=== PATIENT | male | born 1950 | race Two or more races ===

== ENCOUNTER 2021-04-29 18:10 | Inpatient (IN) | payer OTHER ==
[~2021-04-29] VITALS: Ht 165.1 cm; Wt 108.6 kg
[2021-04-29] MEDS ORDERED: traMADol HCL 50 MG TAB PO PRN (19:00)
[2021-04-29] MEDS ORDERED: PANTOPRAZOLE 40 MG/10 ML VIAL INJ IV ONE (19:00)
[2021-04-29] MEDS ORDERED: NITROGLYCERIN 0.4 MG SL TAB SL PRN (19:00)
[2021-04-29] MEDS ORDERED: MORPHINE SULF INJ 2 MG/ML SYRINGE 1ML IV PRN (19:00)
[2021-04-29] MEDS ORDERED: DEXTROSE (50%) 50ML SYRG IV PRN (19:00)
[2021-04-29] MEDS ORDERED: PROMETHAZINE HCL 25 MG/ML 1ML IV PRN (19:00)
[2021-04-29] MEDS ORDERED: IBUP800T26 PO (20:49)
[2021-04-29] MEDS ORDERED: METF-370 PO (20:49)
[2021-04-29] MEDS: ACCU-CHEK COMFORT CURVE STRIP VI SCH (21:51)
[2021-04-29] MEDS: InsuLIN REG 1unit/0.01ml Soln (100units/ml) SC SCH (21:53)
[2021-04-29] MEDS: SODIUM CHLORIDE 0.9% 1,000 ML IV SCH (21:54)
[2021-04-29 22:00] VITALS: BP 117/66
[2021-04-30 00:43] LABS: Hematocrit 29.2 % (41.0-53.0)
[2021-04-30 05:00] VITALS: BP 115/68
[2021-04-30 05:44] LABS: Hematocrit 27.5 % (41.0-53.0)
[2021-04-30] MEDS: InsuLIN REG 1unit/0.01ml Soln (100units/ml) SC SCH ×4 (05:58→22:04)
[2021-04-30] MEDS: ACCU-CHEK COMFORT CURVE STRIP VI SCH ×4 (05:58→21:55)
[2021-04-30] MEDS: SODIUM CHLORIDE 0.9% 1,000 ML IV SCH ×2 (06:30→16:30)
[2021-04-30 08:39] VITALS: BP 141/83
[2021-04-30] MEDS: PANTOPRAZOLE 40 MG/10 ML VIAL INJ IV SCH ×2 (09:50→21:55)
[2021-04-30] MEDS ORDERED: GOLYTELY 4L KIT PO ONE (11:45)
[2021-04-30 11:59] LABS: Hemoglobin 9.7 g/dL (13.5-17.5)
[2021-04-30 12:49] VITALS: BP 141/75
[2021-04-30 13:42] LABS: INR 0.98 (0.9-1.15)
[2021-04-30 16:28] VITALS: BP 140/70
[2021-04-30 22:00] VITALS: BP 139/80
[2021-05-01] MEDS: SODIUM CHLORIDE 0.9% 1,000 ML IV SCH ×3 (02:30→22:30)
[2021-05-01] MEDS: ACETAMINOPHEN 500 MG TAB PO PRN ×2 (04:17→23:36)
[2021-05-01 05:00] VITALS: BP 122/74
[2021-05-01] MEDS: ACCU-CHEK COMFORT CURVE STRIP VI SCH ×4 (06:24→22:00)
[2021-05-01] MEDS: InsuLIN REG 1unit/0.01ml Soln (100units/ml) SC SCH ×4 (06:24→22:00)
[2021-05-01 06:52] LABS: Basophils # (auto) 0 10 ^3/uL (0-0.2); Basophils % (auto) 0.4 % (0.0-2.0); Eosinophils # (auto) 0.1 10 ^3/uL (0-0.8); Eosinophils % (auto) 0.7 % (0.0-7.0); Hematocrit 26.4 % (41.0-53.0); Hemoglobin 9.2 g/dL (13.5-17.5); Lymphocytes % (auto) 12.5 % (10.0-50.0); Mean Corpuscular Hemoglobin 32.3 pg (28.0-32.0); Mean Corpuscular Hgb Conc. 34.7 g/dL (32.0-36.0); Mean Corpuscular Volume 93.2 fL (80.0-100.0); Monocytes # (auto) 0.6 10 ^3/uL (0-1.3); Monocytes % (auto) 8.2 % (0.0-12.0); Neutrophils % (auto) 78.2 % (37.0-80.0); Nucleated Red Blood Cells % 0.1 %; Platelet Count (auto) 205 10^3/uL (140-450); Red Blood Cells 2.84 10^6/uL (4.5-5.90); Red Cell Distribution Width 15.7 % (11.8-14.3); White Blood Cell 7.7 10^3/uL (4.4-10.8)
[2021-05-01 07:14] LABS: Potassium 3.4 mmol/L (3.5-5.1)
[2021-05-01 07:20] LABS: Albumin 2.7 g/dL (3.4-5.0); BUN/Creatinine Ratio 8.6; Bilirubin, Total 0.6 mg/dL (0.2-1.0); Total Protein 5.9 g/dL (6.4-8.2)
[2021-05-01 09:00] VITALS: BP 122/65
[2021-05-01] MEDS: PANTOPRAZOLE 40 MG/10 ML VIAL INJ IV SCH ×2 (09:07→23:06)
[2021-05-01] MEDS ORDERED: SODIUM CHLORIDE LOCK 10 ML ONE (09:15)
[2021-05-01] MEDS ORDERED: diphenhdrAMINE HCL 50 MG/1 ML VL ONE (09:16)
[2021-05-01] MEDS: fentaNYL CITRATE 100 MCG/2 ML VL ONE ×2 (10:24→10:29)
[2021-05-01] MEDS: MIDAZOLAM HCL 5 MG/ML-1ML VIAL ONE ×2 (10:24→10:29)
[2021-05-01 13:00] VITALS: BP 155/74
[2021-05-01 17:27] VITALS: BP 133/62
[2021-05-01 17:33] VITALS: BP 141/69
[2021-05-01 22:00] VITALS: BP 143/63
[2021-05-02 04:57] VITALS: BP 123/69
[2021-05-02] MEDS: ACCU-CHEK COMFORT CURVE STRIP VI SCH ×2 (05:46→11:26)
[2021-05-02] MEDS: InsuLIN REG 1unit/0.01ml Soln (100units/ml) SC SCH ×2 (06:54→11:26)
[2021-05-02] MEDS: SODIUM CHLORIDE 0.9% 1,000 ML IV SCH (08:11)
[2021-05-02] MEDS: PANTOPRAZOLE 40 MG/10 ML VIAL INJ IV SCH (08:59)
[2021-05-02 09:00] VITALS: BP 125/70
[2021-05-02 12:15] VITALS: BP 125/70
== END 2021-05-02 13:55 | disposition home or self-care (01) | DRG 378 ==
LOC: TELE-EAST 18:10
PROVIDERS: ADMIT Internal Medicine; ATTEND Family Medicine
PROC: 0DBN8ZZ Excision of Sigmoid Colon, Via Natural or Artificial Opening Endoscopic (ICD-10-PCS; 2021-05-01)
PROC: 0DBP8ZZ Excision of Rectum, Via Natural or Artificial Opening Endoscopic (ICD-10-PCS; principal; 2021-05-01 10:19)
DX: K62.5 Hemorrhage of anus and rectum (principal); D62 Acute posthemorrhagic anemia; K63.5 Polyp of colon; Z20.822 Contact with and (suspected) exposure to COVID-19; K62.1 Rectal polyp; D72.829 Elevated white blood cell count, unspecified; E66.01 Morbid (severe) obesity due to excess calories; E87.6 Hypokalemia; E11.9 Type 2 diabetes mellitus without complications; R00.1 Bradycardia, unspecified; Z68.39 Body mass index [BMI] 39.0-39.9, adult; Z79.899 Other long term (current) drug therapy
CPT/HCPCS: 36415; 71045; 80053; 82962; 83036; 85014; 85018; 85025; 85045; 85049; 85610; 86850; 86900; 86901; 87426; 93005; 93306; C9113; G0378; J1815; J2250

== ENCOUNTER → 2021-05-29 | Outpatient (CLI) | payer OTHER ==
[~2021-05-29] MED LIST: IBUP800T26 PO; METF-370 PO
[2021-05-29 09:18] LABS: Basophils # (auto) 0 10 ^3/uL (0-0.2); Basophils % (auto) 0.3 % (0.0-2.0); Eosinophils # (auto) 0 10 ^3/uL (0-0.8); Hemoglobin 10.3 g/dL (13.5-17.5); Lymphocytes # (auto) 1.7 10 ^3/uL (0.4-5.4); Nucleated Red Blood Cells % 0.1 %; White Blood Cell 8.4 10^3/uL (4.4-10.8)
[2021-05-29 09:21] LABS: Hematocrit 31.1 % (41.0-53.0); Lymphocytes % (auto) 20.2 % (10.0-50.0); Mean Corpuscular Hemoglobin 27.8 pg (28.0-32.0); Mean Corpuscular Hgb Conc. 33.1 g/dL (32.0-36.0); Mean Corpuscular Volume 84.1 fL (80.0-100.0); Monocytes # (auto) 0.5 10 ^3/uL (0-1.3); Monocytes % (auto) 6.2 % (0.0-12.0); Neutrophils # (auto) 6.2 10 ^3/uL (1.6-8.6); Neutrophils % (auto) 73.3 % (37.0-80.0); Red Cell Distribution Width 18.9 % (11.8-14.3)
[2021-05-29 09:23] LABS: Urine Bacteria NONE SEEN /hpf (None Seen); Urine Blood Negative /uL (Negative); Urine Mucus FEW (None Seen); Urine Specific Gravity 1.017 (1.001-1.035); Urine WBC 3 /hpf (0 - 3)
[2021-05-29 09:43] LABS: Potassium 3.8 mmol/L (3.5-5.1)
[2021-05-29 09:51] LABS: BUN/Creatinine Ratio 19.1; Bilirubin, Total 0.3 mg/dL (0.2-1.0); Calcium 9.2 mg/dL (8.5-10.1); Total Protein 8.5 g/dL (6.4-8.2); Uric Acid 5.9 mg/dL (3.5-7.2)
== END | disposition home or self-care (01) ==
LOC: LAB 08:26
PROVIDERS: ATTEND Student in an Organized Health Care Education/Training Program
DX: E11.9 Type 2 diabetes mellitus without complications (principal); I10 Essential (primary) hypertension; N40.0 Benign prostatic hyperplasia without lower urinary tract symptoms; M25.50 Pain in unspecified joint
CPT/HCPCS: 36415; 80053; 80061; 81001; 82043; 83036; 84153; 84154; 84443; 84550; 85025

== ENCOUNTER → 2021-12-06 | Outpatient (CLI) | payer OTHER ==
[2021-12-06 10:18] LABS: Potassium 4.4 mmol/L (3.5-5.1)
[2021-12-06 10:27] LABS: BUN/Creatinine Ratio 17.5; Calcium 9.1 mg/dL (8.5-10.1)
[2021-12-06 10:40] LABS: Basophils # (auto) 0 10 ^3/uL (0-0.2); Basophils % (auto) 0.5 % (0.0-2.0); Eosinophils # (auto) 0.1 10 ^3/uL (0-0.8); Eosinophils % (auto) 1.4 % (0.0-7.0); Hemoglobin 10.8 g/dL (13.5-17.5); Lymphocytes # (auto) 1.3 10 ^3/uL (0.4-5.4); Mean Corpuscular Hemoglobin 25.7 pg (28.0-32.0); Monocytes # (auto) 0.6 10 ^3/uL (0-1.3); Neutrophils % (auto) 68.3 % (37.0-80.0); Red Blood Cells 4.19 10^6/uL (4.5-5.90); Red Cell Distribution Width 18.1 % (11.8-14.3)
[2021-12-06 10:43] LABS: Hematocrit 33.7 % (41.0-53.0); Lymphocytes % (auto) 20.3 % (10.0-50.0); Mean Corpuscular Hgb Conc. 31.9 g/dL (32.0-36.0); Mean Corpuscular Volume 80.6 fL (80.0-100.0); Monocytes % (auto) 9.5 % (0.0-12.0); Neutrophils # (auto) 4.4 10 ^3/uL (1.6-8.6); Nucleated Red Blood Cells % 0.1 %; White Blood Cell 6.4 10^3/uL (4.4-10.8)
== END | disposition home or self-care (01) ==
LOC: LAB 07:23
PROVIDERS: ATTEND Student in an Organized Health Care Education/Training Program
DX: E11.9 Type 2 diabetes mellitus without complications (principal); I10 Essential (primary) hypertension
CPT/HCPCS: 36415; 80048; 80061; 82043; 83036; 85025

== ENCOUNTER 2022-09-04 08:45 | Outpatient (CLI) | payer OTHER ==
[~2022-09-04] VITALS: Ht 177.8 cm; Wt 106.6 kg
[2022-09-04] MEDS ORDERED: ADENOSINE 90 MG/30 ML INJ IV ONE (09:40)
[2022-09-04] MEDS ORDERED: ADENOSINE 90 MG in GIVE UN-DILUTED 0 ML IV ONE (09:45)
== END 2022-09-04 09:40 | disposition home or self-care (01) ==
LOC: Rad HDHVI 08:45
PROVIDERS: ATTEND Internal Medicine
DX: I49.9 Cardiac arrhythmia, unspecified (principal)
CPT/HCPCS: 93005; J0153

== ENCOUNTER → 2022-09-06 | Outpatient (CLI) | payer OTHER ==
[2022-09-06 08:35] LABS: Basophils # (auto) 0 10 ^3/uL (0-0.2); Basophils % (auto) 0.2 % (0.0-2.0); Eosinophils # (auto) 0 10 ^3/uL (0-0.8); Eosinophils % (auto) 0.3 % (0.0-7.0); Hematocrit 38.1 % (41.0-53.0); Hemoglobin 12.8 g/dL (13.5-17.5); Lymphocytes # (auto) 0.9 10 ^3/uL (0.4-5.4); Lymphocytes % (auto) 11.6 % (10.0-50.0); Mean Corpuscular Hemoglobin 30.1 pg (28.0-32.0); Mean Corpuscular Hgb Conc. 33.6 g/dL (32.0-36.0); Mean Corpuscular Volume 89.6 fL (80.0-100.0); Monocytes # (auto) 0.4 10 ^3/uL (0-1.3); Monocytes % (auto) 5.3 % (0.0-12.0); Neutrophils # (auto) 6.1 10 ^3/uL (1.6-8.6); Neutrophils % (auto) 82.6 % (37.0-80.0); Red Blood Cells 4.24 10^6/uL (4.5-5.90); Red Cell Distribution Width 17.1 % (11.8-14.3); White Blood Cell 7.4 10^3/uL (4.4-10.8)
[2022-09-06 08:53] LABS: Urine Bacteria NONE SEEN /hpf (None Seen); Urine Blood Negative /uL (Negative); Urine Hyaline Cast FEW /lpf (0 - 2); Urine Specific Gravity 1.018 (1.001-1.035); Urine WBC 2 /hpf (0 - 3)
[2022-09-06 09:08] LABS: Calcium 9.4 mg/dL (8.5-10.1)
[2022-09-06 09:11] LABS: BUN/Creatinine Ratio 17.8
== END | disposition home or self-care (01) ==
LOC: LAB 08:12
PROVIDERS: ATTEND Student in an Organized Health Care Education/Training Program
DX: I10 Essential (primary) hypertension (principal); E55.9 Vitamin D deficiency, unspecified; E11.9 Type 2 diabetes mellitus without complications; N40.0 Benign prostatic hyperplasia without lower urinary tract symptoms
CPT/HCPCS: 36415; 80048; 80061; 81001; 82043; 82306; 83036; 84153; 84154; 85025

== ENCOUNTER → 2022-09-06 | Outpatient (CLI) | payer OTHER | END | disposition home or self-care (01) | LOC: Rad HDHVI 10:56 | PROVIDERS: ATTEND Internal Medicine | DX: I08.1 Rheumatic disorders of both mitral and tricuspid valves (principal); E78.5 Hyperlipidemia, unspecified; R06.02 Shortness of breath | CPT/HCPCS: 93306 ==

== ENCOUNTER → 2022-10-02 | Outpatient (CLI) | payer OTHER, MEDICAID ==
[2022-10-02 10:20] VITALS: BP 140/79
[2022-10-02 11:20] VITALS: BP 124/74
[2022-10-02 11:42] LABS: Basophils # (auto) 0 10 ^3/uL (0-0.2); Basophils % (auto) 0.4 % (0.0-2.0); Eosinophils # (auto) 0.1 10 ^3/uL (0-0.8); Eosinophils % (auto) 0.8 % (0.0-7.0); Hemoglobin 13.2 g/dL (13.5-17.5); Lymphocytes # (auto) 0.8 10 ^3/uL (0.4-5.4); Lymphocytes % (auto) 10.7 % (10.0-50.0); Mean Corpuscular Hemoglobin 29.7 pg (28.0-32.0); Mean Corpuscular Hgb Conc. 32.9 g/dL (32.0-36.0); Mean Corpuscular Volume 90.4 fL (80.0-100.0); Monocytes # (auto) 0.6 10 ^3/uL (0-1.3); Monocytes % (auto) 7.6 % (0.0-12.0); Neutrophils # (auto) 6.1 10 ^3/uL (1.6-8.6); Neutrophils % (auto) 80.5 % (37.0-80.0); Nucleated Red Blood Cells % 0.1 %; Red Blood Cells 4.43 10^6/uL (4.5-5.90); White Blood Cell 7.6 10^3/uL (4.4-10.8)
[2022-10-02 11:57] LABS: INR 0.97 (0.9-1.15); Partial Thromboplastin Time 24.5 sec (24.6-33.4)
[2022-10-02 12:00] LABS: BUN/Creatinine Ratio 11.6; Calcium 9.4 mg/dL (8.5-10.1)
== END | disposition home or self-care (01) ==
LOC: Rad HDHVI 10:35
PROVIDERS: ATTEND Internal Medicine
DX: R79.1 Abnormal coagulation profile (principal)
CPT/HCPCS: 36415; 71046; 80048; 85025; 85610; 85730; 93005; G0463

== ENCOUNTER 2022-10-03 09:03 | Day surgery (SDC) | payer OTHER, MEDICAID ==
[~2022-10-03] VITALS: Ht 177.8 cm; Wt 102.5 kg
[~2022-10-03 09:03] MED LIST changes: -IBUP800T26 PO
[2022-10-03] MEDS ORDERED: VANCOMYCIN 1GM/250ML 250 ML IV ONE (12:00)
[2022-10-03] MEDS ORDERED: MIDAZOLAM HCL 2MG/2ML 2ml VIAL (1mg/ml) ONE (13:31)
[2022-10-03] MEDS ORDERED: fentaNYL CITRATE 100 MCG/2 ML VL ONE (13:31)
[2022-10-03] MEDS ORDERED: VANCOMYCIN HCL 1000 MG VL ONE (13:32)
[2022-10-03] MEDS ORDERED: LIDOCAINE 2%HCL (LOCAL ANESTH.) INJ 10ml MDV ONE (13:33)
[2022-10-03] MEDS ORDERED: IODIXANOL 320MG/ML 100ML BTL IV ONE (14:14)
[2022-10-03 14:57] VITALS: BP 159/75
[2022-10-03] MEDS ORDERED: HYDROcodone-ACET 5/325MG TAB PO PRN (15:00)
[2022-10-03] MEDS ORDERED: ACETAMINOPHEN 325 MG TAB PO PRN (15:00)
[2022-10-03 15:12] VITALS: BP 168/92
[2022-10-03 15:27] VITALS: BP 155/93
[2022-10-03 15:42] VITALS: BP 160/88
[2022-10-03 15:56] VITALS: BP 161/87
== END 2022-10-03 16:25 | disposition home or self-care (01) ==
LOC: CATH 09:03
PROVIDERS: ATTEND Internal Medicine
DX: I49.5 Sick sinus syndrome (principal); R94.39 Abnormal result of other cardiovascular function study; I44.30 Unspecified atrioventricular block; Z20.822 Contact with and (suspected) exposure to COVID-19
CPT/HCPCS: 33208; 71045; 93005; C1785; C1892; C1898; J2001; J2250; J3010; J3370; J7030; Q9967; U0003; 99152; 99153

== ENCOUNTER → 2022-10-05 | Outpatient (CLI) | payer OTHER, MEDICAID | END | disposition home or self-care (01) | LOC: Rad HDHVI 08:59 | PROVIDERS: ATTEND Internal Medicine | DX: I51.7 Cardiomegaly (principal); R06.02 Shortness of breath; Z95.0 Presence of cardiac pacemaker | CPT/HCPCS: 71046 ==

== ENCOUNTER 2022-12-27 10:02 | Inpatient (IN) | payer OTHER ==
[~2022-12-27] VITALS: Ht 182.9 cm; Wt 103.4 kg
[2022-12-27] MEDS ORDERED: SODIUM CHLORIDE 0.9% 500 ML IVB ONE (10:15)
[2022-12-27 10:25] LABS: Basophils # (auto) 0.1 10 ^3/uL (0-0.2); Basophils % (auto) 0.4 % (0.0-2.0); Eosinophils # (auto) 0.1 10 ^3/uL (0-0.8); Eosinophils % (auto) 0.8 % (0.0-7.0); Hematocrit 36.6 % (41.0-53.0); Hemoglobin 11.8 g/dL (13.5-17.5); Lymphocytes # (auto) 1.6 10 ^3/uL (0.4-5.4); Lymphocytes % (auto) 12.5 % (10.0-50.0); Mean Corpuscular Hgb Conc. 32.3 g/dL (32.0-36.0); Mean Corpuscular Volume 89.8 fL (80.0-100.0); Monocytes # (auto) 0.7 10 ^3/uL (0-1.3); Monocytes % (auto) 5.6 % (0.0-12.0); Neutrophils # (auto) 10.1 10 ^3/uL (1.6-8.6); Neutrophils % (auto) 80.7 % (37.0-80.0); Red Blood Cells 4.07 10^6/uL (4.5-5.90); Red Cell Distribution Width 17.5 % (11.8-14.3); White Blood Cell 12.5 10^3/uL (4.4-10.8)
[2022-12-27 10:55] LABS: INR 0.99 (0.9-1.15); Partial Thromboplastin Time < 20.0 sec (24.6-33.4)
[2022-12-27] MEDS ORDERED: NITROGLYCERIN 0.4 MG SL TAB SL PRN (12:15)
[2022-12-27] MEDS ORDERED: DEXTROSE (50%) 50ML SYRG IV PRN (12:15)
[2022-12-27] MEDS ORDERED: PANTOPRAZOLE 40 MG/10 ML VIAL INJ IV ONE (12:15)
[2022-12-27] MEDS ORDERED: MORPHINE SULFATE INJ 2 MG/ml SYRG IV PRN (12:15)
[2022-12-27] MEDS ORDERED: cefTRIAXone 1GM/50ML D5W 50 ML IV ONE (12:15)
[2022-12-27] MEDS ORDERED: ALBUMIN 5% 250 ML IV ONE (12:15)
[2022-12-27] MEDS ORDERED: ACETAMINOPHEN 325 MG TAB PO PRN (12:15)
[2022-12-27 12:24] LABS: Calcium 9.1 mg/dL (8.5-10.1); Magnesium 2.1 mg/dL (1.6-2.6); Potassium 3.6 mmol/L (3.5-5.1)
[2022-12-27 12:26] LABS: Albumin 2.6 g/dL (3.4-5.0); BUN/Creatinine Ratio 34.8
[2022-12-27 12:28] LABS: Bilirubin, Total 0.4 mg/dL (0.2-1.0); Total Protein 6.4 g/dL (6.4-8.2)
[2022-12-27 13:43] LABS: Cholesterol 151 mg/dL (< 200); HDL Cholesterol 37 mg/dL (40-59); LDL Cholesterol 96 mg/dL (< 100); Triglycerides 167 mg/dL (< 150)
[2022-12-27] MEDS ORDERED: ONDANSETRON HCL 4 MG/2 ML VIAL IV PRN (14:45)
[2022-12-27 16:49] LABS: Lactic Acid w/Reflex 3.2 mmol/L (0.4-2.0)
[2022-12-27] MEDS: InsuLIN REG 1unit/0.01ml Soln (100units/ml) SC SCH ×2 (17:00→22:27)
[2022-12-27] MEDS: ACCU-CHEK COMFORT CURVE STRIP VI SCH ×2 (17:42→22:26)
[2022-12-27] MEDS ORDERED: NOREPINEPHRINE 8 MG/250ML KIT 250 ML IV SCH (18:00)
[2022-12-27] MEDS: FUROSEMIDE 20 MG/2 ML VIAL IV SCH (18:00)
[2022-12-27] MEDS ORDERED: PANTOPRAZOLE 80 MG in SODIUM CHL 0.9% 100 ML IV ONE (18:15)
[2022-12-27] MEDS ORDERED: HYDROcodone-ACET 5/325MG TAB PO ONE (18:15)
[2022-12-27] MEDS ORDERED: OCTREOTIDE ACETATE 100 MCG in SODIUM CHL 0.9% 50 ML IV ONE (18:15)
[2022-12-27] MEDS ORDERED: NOREPINEPHRINE 8 MG/250ML KIT 250 ML IV ONE (18:21)
[2022-12-27 18:40] LABS: Hematocrit 32.6 % (41.0-53.0); Hemoglobin 10.7 g/dL (13.5-17.5)
[2022-12-27] MEDS: OCTREOTIDE ACETATE 500 MCG in SODIUM CHL 0.9% 99 ML IV SCH (19:45)
[2022-12-27] MEDS: PANTOPRAZOLE 40mg/50ML NS AE 50 ML IV SCH ×2 (19:45→23:50)
[2022-12-27] MEDS: ATORVASTATIN 20 MG TAB PO SCH (22:29)
[2022-12-27 23:15] VITALS: BP 119/57
[2022-12-27 23:30] VITALS: BP 111/57
[2022-12-27 23:45] VITALS: BP 107/66
[2022-12-28] VITALS (17 sets, daily range): BP systolic 108–138; BP diastolic 45–74
[2022-12-28] MEDS: PANTOPRAZOLE 40mg/50ML NS AE 50 ML IV SCH ×3 (05:19→14:54)
[2022-12-28] MEDS: OCTREOTIDE ACETATE 500 MCG in SODIUM CHL 0.9% 99 ML IV SCH (05:20)
[2022-12-28] MEDS: FUROSEMIDE 20 MG/2 ML VIAL IV SCH (05:59)
[2022-12-28 06:03] LABS: Basophils # (auto) 0 10 ^3/uL (0-0.2); Basophils % (auto) 0.5 % (0.0-2.0); Eosinophils # (auto) 0.1 10 ^3/uL (0-0.8); Eosinophils % (auto) 1.4 % (0.0-7.0); Hematocrit 29.8 % (41.0-53.0); Hemoglobin 9.8 g/dL (13.5-17.5); Lymphocytes % (auto) 10.7 % (10.0-50.0); Mean Corpuscular Hemoglobin 30.2 pg (28.0-32.0); Mean Corpuscular Hgb Conc. 33.1 g/dL (32.0-36.0); Mean Corpuscular Volume 91.4 fL (80.0-100.0); Monocytes # (auto) 0.7 10 ^3/uL (0-1.3); Monocytes % (auto) 7.5 % (0.0-12.0); Neutrophils # (auto) 7.5 10 ^3/uL (1.6-8.6); Neutrophils % (auto) 79.9 % (37.0-80.0); Nucleated Red Blood Cells % 0.1 %; Red Blood Cells 3.25 10^6/uL (4.5-5.90); Red Cell Distribution Width 17.2 % (11.8-14.3); White Blood Cell 9.3 10^3/uL (4.4-10.8)
[2022-12-28] MEDS: ACCU-CHEK COMFORT CURVE STRIP VI SCH ×4 (07:05→22:10)
[2022-12-28] MEDS: InsuLIN REG 1unit/0.01ml Soln (100units/ml) SC SCH ×4 (07:07→22:12)
[2022-12-28] MEDS: cefTRIAXone 1GM/50ML D5W 50 ML IV SCH (09:22)
[2022-12-28] MEDS ORDERED: PANTOPRAZOLE 40 MG/10 ML VIAL INJ IV SCH (10:00)
[2022-12-28] MEDS ORDERED: ENOXAPARIN SOD 40 MG/0.4 ML SYRINGE SC SCH (10:00)
[2022-12-28 10:11] LABS: Hematocrit 33.1 % (41.0-53.0)
[2022-12-28 10:23] LABS: BUN/Creatinine Ratio 43.8; Calcium 8.3 mg/dL (8.5-10.1); Potassium 3.9 mmol/L (3.5-5.1)
[2022-12-28 11:58] LABS: INR 0.96 (0.9-1.15); Partial Thromboplastin Time 23.4 sec (24.6-33.4)
[2022-12-28] MEDS ORDERED: fentaNYL CITRATE 100 MCG/2 ML VL ONE ×2 (14:44→15:48)
[2022-12-28] MEDS ORDERED: diphenhdrAMINE HCL 50 MG/1 ML VL ONE ×2 (14:44→15:48)
[2022-12-28] MEDS ORDERED: MIDAZOLAM HCL 2MG/2ML 2ml VIAL (1mg/ml) ONE ×2 (14:44→15:47)
[2022-12-28] MEDS ORDERED: LIDOCAINE VISCOUS 2% 15ML UD ONE ×2 (14:44→15:56)
[2022-12-28 15:02] LABS: Urine Bacteria NONE SEEN /hpf (None Seen); Urine Blood Negative /uL (Negative); Urine Specific Gravity 1.019 (1.001-1.035); Urine WBC 1 /hpf (0 - 3)
[2022-12-28 15:26] LABS: Alcohol, Urine < 3.0 mg/dL (0-10); Amphetamine Screen, Urine NEGATIVE (NEGATIVE); Barbiturate Scree,Urine NEGATIVE (NEGATIVE); Benzodiazephine Screen, Urine NEGATIVE (NEGATIVE); Cannabinoid Screen, Urine NEGATIVE (NEGATIVE); Cocaine Screen, Urine NEGATIVE (NEGATIVE); Opiate Scree,Urine NEGATIVE (NEGATIVE); Phencyclidine Screen, Urine NEGATIVE (NEGATIVE)
[2022-12-28] MEDS ORDERED: LIDOCAINE VISCOUS 2% 15ML UD MT ONE (16:12)
[2022-12-28] MEDS ORDERED: MIDAZOLAM HCL 2MG/2ML 2ml VIAL (1mg/ml) IV ONE ×2 (16:15→16:18)
[2022-12-28] MEDS ORDERED: diphenhdrAMINE HCL 50 MG/1 ML VL IV ONE (16:15)
[2022-12-28] MEDS ORDERED: fentaNYL CITRATE 100 MCG/2 ML VL IV ONE (16:19)
[2022-12-28 19:10] LABS: Hematocrit 31.5 % (41.0-53.0); Hemoglobin 10.6 g/dL (13.5-17.5)
[2022-12-28] MEDS ORDERED: LISI2.5T47 PO (19:33)
[2022-12-28] MEDS: ATORVASTATIN 20 MG TAB PO SCH (22:10)
[2022-12-28] MEDS: PANTOPRAZOLE 40 MG/10 ML VIAL INJ IV SCH (22:10)
[2022-12-29 00:35] LABS: Hematocrit 29.9 % (41.0-53.0)
[2022-12-29 05:00] VITALS: BP 130/75
[2022-12-29 06:10] LABS: Basophils # (auto) 0 10 ^3/uL (0-0.2); Basophils % (auto) 0.4 % (0.0-2.0); Eosinophils # (auto) 0.1 10 ^3/uL (0-0.8); Eosinophils % (auto) 1.3 % (0.0-7.0); Hematocrit 29.6 % (41.0-53.0); Lymphocytes # (auto) 1.2 10 ^3/uL (0.4-5.4); Mean Corpuscular Hemoglobin 30.3 pg (28.0-32.0); Mean Corpuscular Hgb Conc. 33.9 g/dL (32.0-36.0); Mean Corpuscular Volume 89.5 fL (80.0-100.0); Monocytes # (auto) 0.5 10 ^3/uL (0-1.3); Monocytes % (auto) 6.2 % (0.0-12.0); Neutrophils # (auto) 5.6 10 ^3/uL (1.6-8.6); Neutrophils % (auto) 76.1 % (37.0-80.0); Nucleated Red Blood Cells % 0.2 %; Red Cell Distribution Width 16.8 % (11.8-14.3); White Blood Cell 7.3 10^3/uL (4.4-10.8)
[2022-12-29 06:25] LABS: Potassium 3.4 mmol/L (3.5-5.1)
[2022-12-29 06:38] LABS: BUN/Creatinine Ratio 37.1; Calcium 8.3 mg/dL (8.5-10.1)
[2022-12-29] MEDS: ACCU-CHEK COMFORT CURVE STRIP VI SCH ×4 (06:44→21:44)
[2022-12-29] MEDS: InsuLIN REG 1unit/0.01ml Soln (100units/ml) SC SCH ×4 (06:45→21:45)
[2022-12-29] MEDS: LEVOTHYROXINE SODIUM 25 MCG TAB PO SCH (06:50)
[2022-12-29] MEDS: PANTOPRAZOLE 40 MG/10 ML VIAL INJ IV SCH ×2 (08:23→21:42)
[2022-12-29] MEDS: cefTRIAXone 1GM/50ML D5W 50 ML IV SCH (08:23)
[2022-12-29 09:00] VITALS: BP 145/73
[2022-12-29] MEDS ORDERED: POTASSIUM CHLORIDE 20 MEQ, LIDOCAINE 1% (LOCAL ANESTH.) 2 ML in SODIUM CHL 0.9% 100 ML IV ONE (10:15)
[2022-12-29] MEDS ORDERED: CHLO25TA2 PO (10:34)
[2022-12-29] MEDS ORDERED: METO25TA5 PO (10:34)
[2022-12-29] MEDS ORDERED: METF-371 PO (10:34)
[2022-12-29 12:12] LABS: Hematocrit 28.8 % (41.0-53.0); Hemoglobin 9.7 g/dL (13.5-17.5)
[2022-12-29] MEDS: SUCRALFATE 1 GM TAB PO SCH ×3 (12:21→21:43)
[2022-12-29 13:00] VITALS: BP 145/75
[2022-12-29] MEDS ORDERED: METOPROLOL TARTRATE 25 MG TAB PO ONE (16:00)
[2022-12-29] MEDS ORDERED: LISINOPRIL 10 MG TAB PO ONE (16:00)
[2022-12-29 17:00] VITALS: BP 171/78
[2022-12-29] MEDS: ATORVASTATIN 20 MG TAB PO SCH (21:43)
[2022-12-29] MEDS: METOPROLOL TARTRATE 25 MG TAB PO SCH (21:43)
[2022-12-29 22:00] VITALS: BP 149/75
[2022-12-30 05:00] VITALS: BP 148/68
[2022-12-30] MEDS: SUCRALFATE 1 GM TAB PO SCH ×5 (06:49→22:00)
[2022-12-30] MEDS: LEVOTHYROXINE SODIUM 25 MCG TAB PO SCH (06:49)
[2022-12-30] MEDS: InsuLIN REG 1unit/0.01ml Soln (100units/ml) SC SCH ×4 (06:49→22:02)
[2022-12-30] MEDS: ACCU-CHEK COMFORT CURVE STRIP VI SCH ×4 (06:49→22:01)
[2022-12-30 06:58] LABS: Basophils # (auto) 0 10 ^3/uL (0-0.2); Basophils % (auto) 0.5 % (0.0-2.0); Eosinophils # (auto) 0.1 10 ^3/uL (0-0.8); Eosinophils % (auto) 1.1 % (0.0-7.0); Hematocrit 30.7 % (41.0-53.0); Hemoglobin 10.1 g/dL (13.5-17.5); Lymphocytes # (auto) 0.9 10 ^3/uL (0.4-5.4); Lymphocytes % (auto) 13.7 % (10.0-50.0); Mean Corpuscular Hemoglobin 29.6 pg (28.0-32.0); Mean Corpuscular Hgb Conc. 32.9 g/dL (32.0-36.0); Mean Corpuscular Volume 90.1 fL (80.0-100.0); Monocytes # (auto) 0.4 10 ^3/uL (0-1.3); Monocytes % (auto) 6.1 % (0.0-12.0); Neutrophils # (auto) 5.3 10 ^3/uL (1.6-8.6); Neutrophils % (auto) 78.6 % (37.0-80.0); Nucleated Red Blood Cells % 0.1 %; Red Blood Cells 3.41 10^6/uL (4.5-5.90); Red Cell Distribution Width 16.4 % (11.8-14.3); White Blood Cell 6.8 10^3/uL (4.4-10.8)
[2022-12-30 07:06] LABS: RPR Non Reactive (Non Reactive)
[2022-12-30 07:47] LABS: BUN/Creatinine Ratio 14.1; Calcium 8.6 mg/dL (8.5-10.1); Potassium 3.7 mmol/L (3.5-5.1)
[2022-12-30] MEDS: LISINOPRIL 10 MG TAB PO SCH (08:25)
[2022-12-30] MEDS: METOPROLOL TARTRATE 25 MG TAB PO SCH ×2 (08:25→22:01)
[2022-12-30] MEDS: cefTRIAXone 1GM/50ML D5W 50 ML IV SCH (08:51)
[2022-12-30] MEDS: PANTOPRAZOLE 40 MG/10 ML VIAL INJ IV SCH ×2 (08:51→22:00)
[2022-12-30 09:00] VITALS: BP 147/54
[2022-12-30 13:14] VITALS: BP 128/74
[2022-12-30 17:00] VITALS: BP 133/61
[2022-12-30 22:00] VITALS: BP 141/69
[2022-12-30] MEDS: ATORVASTATIN 20 MG TAB PO SCH (22:00)
[2022-12-31 05:00] VITALS: BP 138/75
[2022-12-31] MEDS: ACCU-CHEK COMFORT CURVE STRIP VI SCH ×2 (06:21→11:19)
[2022-12-31] MEDS: InsuLIN REG 1unit/0.01ml Soln (100units/ml) SC SCH ×2 (06:29→12:10)
[2022-12-31] MEDS: SUCRALFATE 1 GM TAB PO SCH ×2 (06:30→12:09)
[2022-12-31] MEDS: LEVOTHYROXINE SODIUM 25 MCG TAB PO SCH (06:30)
[2022-12-31] MEDS: cefTRIAXone 1GM/50ML D5W 50 ML IV SCH (08:25)
[2022-12-31 08:39] LABS: Folate (Folic Acid) 4.49 ng/mL (5.38-24)
[2022-12-31] MEDS: METOPROLOL TARTRATE 25 MG TAB PO SCH (08:45)
[2022-12-31] MEDS: PANTOPRAZOLE 40 MG/10 ML VIAL INJ IV SCH (08:45)
[2022-12-31] MEDS: LISINOPRIL 10 MG TAB PO SCH (08:46)
[2022-12-31 09:09] VITALS: BP 157/73
[2022-12-31] MEDS ORDERED: LISI-716 PO (10:49)
[2022-12-31] MEDS ORDERED: LEV25T PO (10:49)
[2022-12-31] MEDS ORDERED: PANT40TA2 PO (10:49)
[2022-12-31] MEDS ORDERED: CYAN1TAB14 PO (10:49)
[2022-12-31] MEDS ORDERED: SUCR1TAB PO (10:49)
[2022-12-31] MEDS ORDERED: CYANOCOBALAMIN (B-12) 1000 MCG/1 ML VIAL IM ONE (11:00)
[2022-12-31 12:36] VITALS: BP 146/62
[2022-12-31 12:51] VITALS: BP 141/60
== END 2022-12-31 14:40 | disposition home or self-care (01) | DRG 377 ==
LOC: EDBD 10:02 → ER 10:02 → TELE 12:07 → TELE-CENTR 12-28 17:57
PROVIDERS: ADMIT Nurse Practitioner Family; ATTEND Internal Medicine
PROC: 30233N1 Transfusion of Nonautologous Red Blood Cells into Peripheral Vein, Percutaneous Approach (ICD-10-PCS; 2022-12-27)
PROC: 0DB68ZX Excision of Stomach, Via Natural or Artificial Opening Endoscopic, Diagnostic (ICD-10-PCS; 2022-12-28)
PROC: 0DB38ZX Excision of Lower Esophagus, Via Natural or Artificial Opening Endoscopic, Diagnostic (ICD-10-PCS; 2022-12-28)
PROC: 30233K1 Transfusion of Nonautologous Frozen Plasma into Peripheral Vein, Percutaneous Approach (ICD-10-PCS; 2022-12-28)
PROC: 0DB98ZX Excision of Duodenum, Via Natural or Artificial Opening Endoscopic, Diagnostic (ICD-10-PCS; principal; 2022-12-28 16:09)
DX: K25.4 Chronic or unspecified gastric ulcer with hemorrhage (principal); I50.31 Acute diastolic (congestive) heart failure; D62 Acute posthemorrhagic anemia; I11.0 Hypertensive heart disease with heart failure; K22.11 Ulcer of esophagus with bleeding; D72.829 Elevated white blood cell count, unspecified; E66.01 Morbid (severe) obesity due to excess calories; E11.9 Type 2 diabetes mellitus without complications; E78.5 Hyperlipidemia, unspecified; I48.91 Unspecified atrial fibrillation; K80.20 Calculus of gallbladder without cholecystitis without obstruction; Z20.822 Contact with and (suspected) exposure to COVID-19; R55 Syncope and collapse; D64.9 Anemia, unspecified; E03.9 Hypothyroidism, unspecified; K40.20 Bilateral inguinal hernia, without obstruction or gangrene, not specified as recurrent; K44.9 Diaphragmatic hernia without obstruction or gangrene; I95.9 Hypotension, unspecified; Z68.30 Body mass index [BMI] 30.0-30.9, adult; Z95.0 Presence of cardiac pacemaker; Z79.899 Other long term (current) drug therapy
CPT/HCPCS: 36415; 70450; 71045; 74176; 80048; 80053; 80061; 80307; 81001; 82607; 82746; 82962; 83036; 83605; 83735; 83880; 84439; 84443; 84484; 85014; 85018; 85025; 85610; 85730; 86592; 86850; 86900; 86901; 86920; 87040; 87426; 93005; 93886; 93970; 96361; 96365; 96375; 97110; 97116; 97163; 97530; 99291; C9113; G0378; J0696; J1815; J2001; J2250; J2405

== ENCOUNTER → 2023-02-05 | Outpatient (CLI) | payer OTHER ==
[~2023-02-05] VITALS: Ht 177.8 cm; Wt 97.5 kg
[~2023-02-05] MED LIST changes: +ADENOSINE 82 MG in GIVE UN-DILUTED 0 ML IV ONE; +ADENOSINE 90 MG/30 ML INJ IV ONE; +CHLO25TA2 PO; +CYAN1TAB14 PO; +LEV25T PO; +LISI-716 PO; -METF-370 PO; +METF-371 PO; +METO25TA5 PO; +PANT40TA2 PO; +SUCR1TAB PO
== END | disposition home or self-care (01) ==
LOC: Rad HDHVI 14:03
PROVIDERS: ATTEND Internal Medicine Cardiovascular Disease
DX: I44.1 Atrioventricular block, second degree (principal); I10 Essential (primary) hypertension; E11.621 Type 2 diabetes mellitus with foot ulcer; E78.5 Hyperlipidemia, unspecified; Z95.0 Presence of cardiac pacemaker
CPT/HCPCS: 78452; 93005; 96374; 96375; A9500; J0153

== ENCOUNTER → 2023-02-08 | Outpatient (CLI) | payer OTHER ==
[~2023-02-08] MED LIST changes: -ADENOSINE 82 MG in GIVE UN-DILUTED 0 ML IV ONE; -ADENOSINE 90 MG/30 ML INJ IV ONE
== END | disposition home or self-care (01) ==
LOC: Rad HDHVI 10:54
PROVIDERS: ATTEND Internal Medicine Cardiovascular Disease
DX: R00.0 Tachycardia, unspecified (principal); I10 Essential (primary) hypertension
CPT/HCPCS: 93306

== ENCOUNTER 2023-09-10 16:40 | Emergency (ER) | payer OTHER ==
[~2023-09-10] VITALS: Ht 177.8 cm; Wt 97.7 kg
[~2023-09-10 16:40] MED LIST changes: -LISI-716 PO; +LISI10TA34 PO
[2023-09-10 19:15] LABS: Basophils # (auto) 0.1 10 ^3/uL (0-0.2); Basophils % (auto) 0.5 % (0.0-2.0); Eosinophils # (auto) 0.1 10 ^3/uL (0-0.8); Eosinophils % (auto) 0.9 % (0.0-7.0); Hematocrit 35.7 % (41.0-53.0); Hemoglobin 10.9 g/dL (13.5-17.5); Lymphocytes # (auto) 0.9 10 ^3/uL (0.4-5.4); Lymphocytes % (auto) 7.8 % (10.0-50.0); Mean Corpuscular Hemoglobin 22.3 pg (28.0-32.0); Mean Corpuscular Hgb Conc. 30.6 g/dL (32.0-36.0); Monocytes # (auto) 0.9 10 ^3/uL (0-1.3); Monocytes % (auto) 7.6 % (0.0-12.0); Neutrophils # (auto) 9.8 10 ^3/uL (1.6-8.6); Neutrophils % (auto) 83.2 % (37.0-80.0); Nucleated Red Blood Cells % 0.1 %; Red Blood Cells 4.89 10^6/uL (4.5-5.90); Red Cell Distribution Width 28.6 % (11.8-14.3); White Blood Cell 11.8 10^3/uL (4.4-10.8)
[2023-09-10 19:31] LABS: Alanine Aminotransferase 25 U/L (7-40); Albumin 4.3 g/dL (3.2-4.8); Alkaline Phosphatase 61 U/L (46-116); Anion Gap 9 (5-15); Aspartate Aminotransferase 14 U/L (13-40); BUN/Creatinine Ratio 14.1 (10.0-20.0); Bilirubin, Total 0.4 mg/dL (0.2-1.0); Blood Urea Nitrogen 13 mg/dL (9-23); Calcium 9.6 mg/dL (8.5-10.1); Carbon Dioxide 27 mmol/L (20-30); Chloride 94 mmol/L (98-107); Glucose 166 mg/dL (74-106); Potassium 3.3 mmol/L (3.5-5.1); Sodium 130 mmol/L (136-145); Total Protein 7.2 g/dL (5.7-8.2)
[2023-09-10 19:35] LABS: Lactic Acid w/Reflex 3.4 mmol/L (0.4-2.0)
[2023-09-10 19:48] LABS: Anisocytosis Moderate
[2023-09-10 19:49] LABS: Hypochromia Moderate
[2023-09-10 19:50] LABS: Stomatocytes Moderate
[2023-09-10 19:51] LABS: Platelet Estimate Adequate
[2023-09-10] MEDS ORDERED: SODIUM CHLORIDE 0.9% 1,000 ML IV ONE (20:15)
[2023-09-10] MEDS ORDERED: cefTRIAXone 1GM/50ML D5W 50 ML IV ONE (20:15)
[2023-09-10 20:23] VITALS: PULSE 95; RESP 20; O2SAT 98
[2023-09-10 21:30] LABS: Urine Bacteria FEW /hpf (None Seen); Urine Blood TRACE /uL (Negative); Urine Clarity HAZY (Clear); Urine Color Colorless (Yellow); Urine Protein, UAD Negative (Negative); Urine Urobilinogen Normal (Negative); Urine WBC 40 /hpf (0 - 3)
[2023-09-10] MEDS ORDERED: NITR-87 PO (23:27)
[2023-09-10] MEDS ORDERED: TAMS-35 PO (23:27)
[2023-09-10 23:45] VITALS: BP 112/70; PULSE 81; RESP 18; TEMP 99; O2SAT 99
== END 2023-09-10 23:45 | disposition home or self-care (01) ==
LOC: ER 16:40
DX: N39.0 Urinary tract infection, site not specified (principal)
CPT/HCPCS: 36415; 80053; 81001; 83605; 85025; 96365; J0696

== ENCOUNTER 2023-09-11 14:19 | Inpatient (IN) | payer OTHER ==
[~2023-09-11] VITALS: Ht 162.6 cm; Wt 94.9 kg
[~2023-09-11 14:19] MED LIST changes: +NITR-87 PO; +TAMS-35 PO
[2023-09-11] MEDS ORDERED: SODIUM CHLORIDE 0.9% 500 ML IV ONE ×2 (15:15→18:00)
[2023-09-11] MEDS ORDERED: PIPERACILLIN-TAZOB 3.375GM 100 ML IV ONE (15:15)
[2023-09-11 15:20] LABS: Eosinophils # (auto) 0 10 ^3/uL (0-0.8); Eosinophils % (auto) 0.1 % (0.0-7.0); Mean Corpuscular Volume 74.2 fL (80.0-100.0); Monocytes # (auto) 0.5 10 ^3/uL (0-1.3); Neutrophils # (auto) 16.5 10 ^3/uL (1.6-8.6)
[2023-09-11 15:22] LABS: Basophils # (auto) 0 10 ^3/uL (0-0.2); Basophils % (auto) 0.2 % (0.0-2.0); Hematocrit 36.9 % (41.0-53.0); Hemoglobin 11.1 g/dL (13.5-17.5); Lymphocytes # (auto) 0.4 10 ^3/uL (0.4-5.4); Lymphocytes % (auto) 2.5 % (10.0-50.0); Mean Corpuscular Hemoglobin 22.4 pg (28.0-32.0); Mean Corpuscular Hgb Conc. 30.1 g/dL (32.0-36.0); Monocytes % (auto) 2.7 % (0.0-12.0); Neutrophils % (auto) 94.5 % (37.0-80.0); Nucleated Red Blood Cells % 0.1 %; Red Blood Cells 4.97 10^6/uL (4.5-5.90); White Blood Cell 17.5 10^3/uL (4.4-10.8)
[2023-09-11 15:25] LABS: Red Cell Distribution Width 28.4 % (11.8-14.3)
[2023-09-11] MEDS: FUROSEMIDE 20 MG/2 ML VIAL IV ONE ×2 (15:30→16:05)
[2023-09-11 15:38] LABS: Alanine Aminotransferase 37 U/L (7-40); Albumin 3.7 g/dL (3.2-4.8); Alkaline Phosphatase 87 U/L (46-116); Anion Gap 16 (5-15); Aspartate Aminotransferase 56 U/L (13-40); Bilirubin, Total 0.8 mg/dL (0.2-1.0); Calcium 9.2 mg/dL (8.5-10.1); Carbon Dioxide 20 mmol/L (20-30); Chloride 94 mmol/L (98-107); Glucose 130 mg/dL (74-106); Potassium 3.2 mmol/L (3.5-5.1); Sodium 130 mmol/L (136-145); Total Protein 6.2 g/dL (5.7-8.2)
[2023-09-11] MEDS ORDERED: ACETAMINOPHEN IV 1000 MG/100ML (10MG/ML) IV ONE (15:45)
[2023-09-11 15:46] LABS: Blood Urea Nitrogen 23 mg/dL (9-23)
[2023-09-11 15:48] LABS: Anisocytosis Moderate; Hypochromia Moderate; Platelet Estimate Adequate
[2023-09-11 15:54] LABS: Magnesium 1.4 mg/dL (1.6-2.6)
[2023-09-11 15:57] LABS: Lactic Acid w/Reflex 6.5 mmol/L (0.4-2.0)
[2023-09-11 16:11] VITALS: PULSE 121; RESP 28; O2SAT 98
[2023-09-11] MEDS ORDERED: LIDOCAINE 2% JELLY 11ml (GLYDO) ONE (16:43)
[2023-09-11] MEDS ORDERED: VANCOMYCIN PER PHARMACY 0 MG IV SCH (16:45)
[2023-09-11] MEDS ORDERED: CEFEPIME 2GM/50ML NS 50 ML IV SCH ×3 (17:00→22:00)
[2023-09-11 17:20] LABS: Urine Bacteria NONE SEEN /hpf (None Seen); Urine Blood 3+ /uL (Negative); Urine Clarity HAZY (Clear); Urine Color PINK (Yellow); Urine Protein, UAD 1+ (Negative); Urine Urobilinogen Normal (Negative); Urine WBC 83 /hpf (0 - 3)
[2023-09-11] MEDS ORDERED: POTASSIUM CHL 20MEQ/100ML 100 ML IV ONE (17:30)
[2023-09-11 17:43] LABS: INR 1.09 (0.9-1.15); Prothrombin Time 11.4 sec (9.3-11.8)
[2023-09-11] MEDS ORDERED: VANCOMYCIN 1GM/250ML 250 ML IV ONE (17:45)
[2023-09-11] MEDS: SODIUM CHLORIDE 0.9% 1,000 ML IV SCH (18:09)
[2023-09-11] MEDS ORDERED: LIDOCAINE 1% (LOCAL ANESTH.) PF 5ml SDV ID ONE (19:00)
[2023-09-11 19:30] VITALS: PULSE 112; RESP 25; O2SAT 100
[2023-09-11 19:34] LABS: Hemoglobin 9.3 g/dL (13.5-17.5)
[2023-09-11 19:35] LABS: Hematocrit 31.3 % (41.0-53.0)
[2023-09-11] MEDS: NOREPINEPHRINE 8 MG/250ML KIT 250 ML IV SCH (20:45)
[2023-09-11] MEDS: SODIUM CHLOR 0.9% PF (SALINE LOCK) 10ML VIAL/SYR IV SCH (22:04)
[2023-09-11] MEDS: ONDANSETRON HCL 4 MG/2 ML VIAL IV PRN (22:54)
[2023-09-11] MEDS ORDERED: ALBUTEROL MEDNEB 2.5 mg/3ml NEB ONE (23:42)
[2023-09-12 00:22] VITALS: BP 148/66; PULSE 122; RESP 20; O2SAT 99
[2023-09-12 00:31] VITALS: PULSE 123; RESP 20; O2SAT 100
[2023-09-12] MEDS: ALBUTEROL MEDNEB 2.5 mg/3ml NEB NEB PRN ×2 (00:31→07:06)
[2023-09-12 00:41] VITALS: PULSE 118; RESP 20; O2SAT 100
[2023-09-12 01:04] LABS: Hemoglobin 10.1 g/dL (13.5-17.5)
[2023-09-12 01:07] LABS: Hematocrit 33.4 % (41.0-53.0)
[2023-09-12] MEDS ORDERED: MORPHINE SULFATE 4 MG/ML SYR/VIAL IV ONE (02:15)
[2023-09-12] MEDS ORDERED: ONDANSETRON HCL 4 MG/2 ML VIAL IV ONE (02:15)
[2023-09-12] MEDS ORDERED: PANTOPRAZOLE 40 MG/10 ML VIAL INJ IV ONE (02:15)
[2023-09-12] MEDS: SODIUM CHLORIDE 0.9% 1,000 ML IV SCH ×3 (03:22→13:45)
[2023-09-12 04:24] LABS: Basophils # (auto) 0 10 ^3/uL (0-0.2); Basophils % (auto) 0.2 % (0.0-2.0); Eosinophils # (auto) 0 10 ^3/uL (0-0.8); Eosinophils % (auto) 0.1 % (0.0-7.0); Nucleated Red Blood Cells % 0.1 %
[2023-09-12 04:25] LABS: Hematocrit 35.6 % (41.0-53.0); Hemoglobin 10.7 g/dL (13.5-17.5); Lymphocytes # (auto) 0.5 10 ^3/uL (0.4-5.4); Lymphocytes % (auto) 2.6 % (10.0-50.0); Mean Corpuscular Hemoglobin 23.1 pg (28.0-32.0); Mean Corpuscular Hgb Conc. 30.2 g/dL (32.0-36.0); Mean Corpuscular Volume 76.5 fL (80.0-100.0); Monocytes # (auto) 1.4 10 ^3/uL (0-1.3); Neutrophils # (auto) 17.7 10 ^3/uL (1.6-8.6); Neutrophils % (auto) 90.1 % (37.0-80.0); Red Blood Cells 4.65 10^6/uL (4.5-5.90); White Blood Cell 19.6 10^3/uL (4.4-10.8)
[2023-09-12 04:27] LABS: Red Cell Distribution Width 28.7 % (11.8-14.3)
[2023-09-12 04:41] LABS: Alanine Aminotransferase 68 U/L (7-40); Albumin 3.4 g/dL (3.2-4.8); Alkaline Phosphatase 85 U/L (46-116); Anion Gap 15 (5-15); Aspartate Aminotransferase 163 U/L (13-40); BUN/Creatinine Ratio 13.2 (10.0-20.0); Blood Urea Nitrogen 24 mg/dL (9-23); Carbon Dioxide 16 mmol/L (20-30); Chloride 100 mmol/L (98-107); Glucose 165 mg/dL (74-106); Potassium 3.7 mmol/L (3.5-5.1); Sodium 131 mmol/L (136-145)
[2023-09-12 04:42] LABS: Bilirubin, Total 0.9 mg/dL (0.2-1.0); Total Protein 5.8 g/dL (5.7-8.2)
[2023-09-12] MEDS: HYDROcodone-ACET 5/325MG TAB PO PRN (04:55)
[2023-09-12 07:00] VITALS: PULSE 112; RESP 28; O2SAT 97
[2023-09-12 07:09] VITALS: PULSE 117; RESP 29; O2SAT 97
[2023-09-12 08:15] LABS: Anisocytosis Moderate; Hypochromia Moderate; Platelet Estimate Adequate
[2023-09-12] MEDS: SODIUM CHLOR 0.9% PF (SALINE LOCK) 10ML VIAL/SYR IV SCH ×2 (10:20→22:01)
[2023-09-12] MEDS: PANTOPRAZOLE 40 MG/10 ML VIAL INJ IV SCH (10:20)
[2023-09-12] MEDS ORDERED: DEXTROSE (50%) 50ML SYRG IV PRN (12:00)
[2023-09-12] MEDS ORDERED: FUROSEMIDE 20 MG/2 ML VIAL IV ONE (12:30)
[2023-09-12] MEDS: VANCOMYCIN 1GM/250ML 250 ML IV SCH (13:44)
[2023-09-12] MEDS: ACCU-CHEK COMFORT CURVE STRIP VI SCH ×2 (16:27→18:05)
[2023-09-12] MEDS ORDERED: MAGNESIUM SULFATE 1GM/100ML 100 ML IV ONE (17:00)
[2023-09-12] MEDS: InsuLIN REG 1unit/0.01ml Soln (100units/ml) SC SCH ×2 (17:15→18:00)
[2023-09-12] MEDS: NOREPINEPHRINE 8 MG/250ML KIT 250 ML IV SCH (19:15)
[2023-09-12 19:45] VITALS: PULSE 101; RESP 20; O2SAT 97
[2023-09-13] VITALS (8 sets, daily range): BP systolic 108–143; BP diastolic 54–68; PULSE 92–115; RESP 17–20; TEMP 37.1; O2SAT 97–100
[2023-09-13] MEDS: InsuLIN REG 1unit/0.01ml Soln (100units/ml) SC SCH ×4 (00:16→17:30)
[2023-09-13] MEDS: ACCU-CHEK COMFORT CURVE STRIP VI SCH ×4 (00:16→17:26)
[2023-09-13] MEDS: SODIUM CHLORIDE 0.9% 1,000 ML IV SCH (05:10)
[2023-09-13 05:18] LABS: Basophils # (auto) 0 10 ^3/uL (0-0.2); Eosinophils # (auto) 0.1 10 ^3/uL (0-0.8); Hemoglobin 8.3 g/dL (13.5-17.5); Lymphocytes # (auto) 0.3 10 ^3/uL (0.4-5.4); Neutrophils # (auto) 8.8 10 ^3/uL (1.6-8.6); White Blood Cell 9.8 10^3/uL (4.4-10.8)
[2023-09-13 05:20] LABS: Basophils % (auto) 0.3 % (0.0-2.0); Eosinophils % (auto) 0.8 % (0.0-7.0); Hematocrit 26.4 % (41.0-53.0); Mean Corpuscular Hemoglobin 23.1 pg (28.0-32.0); Mean Corpuscular Hgb Conc. 31.6 g/dL (32.0-36.0); Mean Corpuscular Volume 73.1 fL (80.0-100.0); Monocytes # (auto) 0.6 10 ^3/uL (0-1.3); Monocytes % (auto) 6.2 % (0.0-12.0); Neutrophils % (auto) 89.7 % (37.0-80.0); Red Blood Cells 3.61 10^6/uL (4.5-5.90)
[2023-09-13 05:42] LABS: Red Cell Distribution Width 28.2 % (11.8-14.3)
[2023-09-13 05:46] LABS: Alanine Aminotransferase 49 U/L (7-40); Alkaline Phosphatase 71 U/L (46-116); Anion Gap 9 (5-15); Aspartate Aminotransferase 79 U/L (13-40); BUN/Creatinine Ratio 11.2 (10.0-20.0); Bilirubin, Total 0.5 mg/dL (0.2-1.0); Blood Urea Nitrogen 14 mg/dL (9-23); Calcium 8.3 mg/dL (8.7-10.4); Carbon Dioxide 23 mmol/L (20-30); Chloride 103 mmol/L (98-107); Glucose 199 mg/dL (74-106); Magnesium 2.1 mg/dL (1.6-2.6); Potassium 2.8 mmol/L (3.5-5.1); Sodium 135 mmol/L (136-145); Total Protein 5.3 g/dL (5.7-8.2)
[2023-09-13] MEDS: ONDANSETRON HCL 4 MG/2 ML VIAL IV PRN ×2 (05:52→17:04)
[2023-09-13] MEDS: ALBUTEROL MEDNEB 2.5 mg/3ml NEB NEB PRN (06:27)
[2023-09-13] MEDS ORDERED: POTASSIUM EFFERVESENT TAB 25 MEQ PO ONE (06:30)
[2023-09-13] MEDS: LEVOTHYROXINE SODIUM 25 MCG TAB PO SCH ×2 (06:46→06:56)
[2023-09-13] MEDS ORDERED: POTASSIUM CHLORIDE 40 MEQ, LIDOCAINE 1% (LOCAL ANESTH.) 4 ML in SODIUM CHL 0.9% 250 ML IV ONE (07:30)
[2023-09-13] MEDS: PANTOPRAZOLE 40 MG/10 ML VIAL INJ IV SCH (11:06)
[2023-09-13] MEDS: SODIUM CHLOR 0.9% PF (SALINE LOCK) 10ML VIAL/SYR IV SCH ×2 (11:06→21:55)
[2023-09-13] MEDS: FUROSEMIDE 20 MG/2 ML VIAL IV SCH (11:06)
[2023-09-13] MEDS: HYDROcodone-ACET 5/325MG TAB PO PRN ×2 (11:06→18:09)
[2023-09-13] MEDS ORDERED: POTASSIUM CHL 20 Meq TABLET PO ONE (13:00)
[2023-09-13] MEDS ORDERED: FUROSEMIDE 20 MG/2 ML VIAL IV ONE (13:00)
[2023-09-13] MEDS: VANCOMYCIN 1GM/250ML 250 ML IV SCH (13:07)
[2023-09-13] MEDS: CEFEPIME 2GM/50ML NS 50 ML IV SCH (21:55)
[2023-09-14] VITALS (11 sets, daily range): BP systolic 142–154; BP diastolic 63–78; PULSE 85–98; RESP 17–22; TEMP 97.6–99; O2SAT 96–99
[2023-09-14] MEDS: ACCU-CHEK COMFORT CURVE STRIP VI SCH ×5 (00:12→23:15)
[2023-09-14] MEDS: InsuLIN REG 1unit/0.01ml Soln (100units/ml) SC SCH ×5 (00:17→23:15)
[2023-09-14] MEDS: ONDANSETRON HCL 4 MG/2 ML VIAL IV PRN (01:26)
[2023-09-14] MEDS: HYDROcodone-ACET 5/325MG TAB PO PRN ×2 (01:30→13:11)
[2023-09-14 06:37] LABS: Basophils # (auto) 0 10 ^3/uL (0-0.2); Eosinophils # (auto) 0.2 10 ^3/uL (0-0.8); Hemoglobin 8.2 g/dL (13.5-17.5); Mean Corpuscular Hemoglobin 22.9 pg (28.0-32.0); Mean Corpuscular Hgb Conc. 31.5 g/dL (32.0-36.0); Monocytes # (auto) 0.6 10 ^3/uL (0-1.3); Nucleated Red Blood Cells % 0.1 %
[2023-09-14 06:41] LABS: Basophils % (auto) 0.3 % (0.0-2.0); Eosinophils % (auto) 2.6 % (0.0-7.0); Hematocrit 26.1 % (41.0-53.0); Lymphocytes # (auto) 0.4 10 ^3/uL (0.4-5.4); Lymphocytes % (auto) 4.9 % (10.0-50.0); Mean Corpuscular Volume 72.7 fL (80.0-100.0); Monocytes % (auto) 7.5 % (0.0-12.0); Neutrophils # (auto) 6.8 10 ^3/uL (1.6-8.6); Neutrophils % (auto) 84.7 % (37.0-80.0); Red Blood Cells 3.59 10^6/uL (4.5-5.90); Red Cell Distribution Width 28.1 % (11.8-14.3); White Blood Cell 8.1 10^3/uL (4.4-10.8)
[2023-09-14] MEDS: LEVOTHYROXINE SODIUM 25 MCG TAB PO SCH (06:54)
[2023-09-14 07:15] LABS: Alanine Aminotransferase 34 U/L (7-40); Albumin 2.4 g/dL (3.2-4.8); Anion Gap 11 (5-15); Aspartate Aminotransferase 41 U/L (13-40); BUN/Creatinine Ratio 13.2 (10.0-20.0); Bilirubin, Total 0.5 mg/dL (0.2-1.0); Blood Urea Nitrogen 9 mg/dL (9-23); Calcium 6.8 mg/dL (8.5-10.1); Carbon Dioxide 22 mmol/L (20-30); Chloride 102 mmol/L (98-107); Glucose 142 mg/dL (74-106); Potassium 3.1 mmol/L (3.5-5.1); Sodium 135 mmol/L (136-145); Total Protein 4.2 g/dL (5.7-8.2)
[2023-09-14] MEDS ORDERED: POTASSIUM EFFERVESENT TAB 25 MEQ PO ONE (09:00)
[2023-09-14 09:13] LABS: % Iron Saturation 4.2 % (20-55)
[2023-09-14 09:31] LABS: Alkaline Phosphatase 77 U/L (46-116)
[2023-09-14] MEDS: FUROSEMIDE 20 MG/2 ML VIAL IV SCH (09:41)
[2023-09-14] MEDS: CEFEPIME 2GM/50ML NS 50 ML IV SCH ×2 (09:41→21:22)
[2023-09-14] MEDS: PANTOPRAZOLE 40 MG TAB PO SCH (09:42)
[2023-09-14] MEDS: SODIUM CHLOR 0.9% PF (SALINE LOCK) 10ML VIAL/SYR IV SCH ×2 (09:42→21:22)
[2023-09-14] MEDS: ALBUTEROL MEDNEB 2.5 mg/3ml NEB NEB PRN (11:06)
[2023-09-14] MEDS: VANCOMYCIN 1GM/250ML 250 ML IV SCH (12:58)
[2023-09-14] MEDS ORDERED: FURO20TA3 PO (13:58)
[2023-09-14] MEDS ORDERED: DIGO0.12 PO (13:58)
[2023-09-14] MEDS ORDERED: SIMV10TA20 PO (13:58)
[2023-09-14] MEDS ORDERED: DOCU-94 PO (13:58)
[2023-09-14] MEDS ORDERED: FERR325T24 PO (13:58)
[2023-09-15] VITALS (10 sets, daily range): BP systolic 131–160; BP diastolic 67–76; PULSE 88–96; RESP 17–18; TEMP 98.2–98.9; O2SAT 94–99
[2023-09-15] MEDS: ONDANSETRON HCL 4 MG/2 ML VIAL IV PRN (01:13)
[2023-09-15] MEDS: HYDROcodone-ACET 5/325MG TAB PO PRN ×2 (01:14→20:24)
[2023-09-15] MEDS: ACCU-CHEK COMFORT CURVE STRIP VI SCH ×4 (05:19→23:18)
[2023-09-15] MEDS: InsuLIN REG 1unit/0.01ml Soln (100units/ml) SC SCH ×4 (05:20→23:20)
[2023-09-15] MEDS: LEVOTHYROXINE SODIUM 25 MCG TAB PO SCH (05:21)
[2023-09-15 06:47] LABS: Magnesium 1.7 mg/dL (1.6-2.6)
[2023-09-15] MEDS: SODIUM CHLOR 0.9% PF (SALINE LOCK) 10ML VIAL/SYR IV SCH ×2 (09:50→22:01)
[2023-09-15] MEDS: CEFEPIME 2GM/50ML NS 50 ML IV SCH ×2 (10:45→21:12)
[2023-09-15] MEDS: FUROSEMIDE 20 MG/2 ML VIAL IV SCH (10:45)
[2023-09-15] MEDS: VANCOMYCIN 1GM/250ML 250 ML IV SCH (10:45)
[2023-09-15] MEDS: PANTOPRAZOLE 40 MG TAB PO SCH (10:45)
[2023-09-15] MEDS ORDERED: POTASSIUM CHL 20 Meq TABLET PO ONE (15:45)
[2023-09-16] VITALS (8 sets, daily range): BP systolic 136–160; BP diastolic 69–87; PULSE 19–107; RESP 16–21; TEMP 98.5–100.2; O2SAT 92–99
[2023-09-16] MEDS: VANCOMYCIN 1GM/250ML 250 ML IV SCH (04:48)
[2023-09-16 04:58] LABS: Hematocrit 29.8 % (41.0-53.0); White Blood Cell 6.5 10^3/uL (4.4-10.8)
[2023-09-16 04:59] LABS: Hemoglobin 9.2 g/dL (13.5-17.5); Mean Corpuscular Hemoglobin 22.3 pg (28.0-32.0); Mean Corpuscular Hgb Conc. 30.7 g/dL (32.0-36.0); Mean Corpuscular Volume 72.8 fL (80.0-100.0)
[2023-09-16 05:02] LABS: Chloride 102 mmol/L (98-107); Potassium 3.3 mmol/L (3.5-5.1); Sodium 137 mmol/L (136-145)
[2023-09-16 05:03] LABS: Anion Gap 6 (5-15); Carbon Dioxide 29 mmol/L (20-30)
[2023-09-16 05:04] LABS: Calcium 9.6 mg/dL (8.7-10.4)
[2023-09-16 05:08] LABS: BUN/Creatinine Ratio 10.9 (10.0-20.0); Blood Urea Nitrogen 11 mg/dL (9-23); Glucose 180 mg/dL (74-106)
[2023-09-16 05:33] LABS: Red Cell Distribution Width 28.7 % (11.8-14.3)
[2023-09-16] MEDS: LEVOTHYROXINE SODIUM 25 MCG TAB PO SCH (05:33)
[2023-09-16] MEDS: InsuLIN REG 1unit/0.01ml Soln (100units/ml) SC SCH ×4 (05:34→23:48)
[2023-09-16] MEDS: ACCU-CHEK COMFORT CURVE STRIP VI SCH ×3 (05:34→18:11)
[2023-09-16 05:35] LABS: Basophils % (manual) 0 (0.0-2.0); Blast Cells 0; Metamyelocytes % 0; Myelocytes % 0; Promyelocytes % 0; Reactive Lymphocytes 0
[2023-09-16] MEDS ORDERED: POTASSIUM CHL 20 Meq TABLET PO ONE (07:00)
[2023-09-16] MEDS ORDERED: POTASSIUM EFFERVESENT TAB 25 MEQ PO ONE (07:30)
[2023-09-16 08:04] LABS: Band Neutrophils % (manual) 1; Eosinophils % (manual) 2 (0-7); Lymphocytes % (manual) 10 (10.0-50.0); Monocytes % (manual) 4 (0-12)
[2023-09-16 08:05] LABS: Platelet Estimate Adequate
[2023-09-16] MEDS: FUROSEMIDE 20 MG/2 ML VIAL IV SCH (09:31)
[2023-09-16] MEDS: PANTOPRAZOLE 40 MG TAB PO SCH (09:31)
[2023-09-16] MEDS: CEFEPIME 2GM/50ML NS 50 ML IV SCH (09:32)
[2023-09-16] MEDS: SODIUM CHLOR 0.9% PF (SALINE LOCK) 10ML VIAL/SYR IV SCH ×2 (09:32→21:50)
[2023-09-16] MEDS ORDERED: ACETAMINOPHEN 325 MG TAB PO ONE (19:30)
[2023-09-16] MEDS: AMOXICILLIN/CLAVUL 875 MG TAB PO SCH (21:49)
[2023-09-17 05:00] VITALS: BP 120/68; PULSE 100; RESP 16; TEMP 97.4; O2SAT 90
[2023-09-17] MEDS: InsuLIN REG 1unit/0.01ml Soln (100units/ml) SC SCH ×2 (06:19→12:20)
[2023-09-17] MEDS: ACCU-CHEK COMFORT CURVE STRIP VI SCH ×3 (06:20→11:43)
[2023-09-17] MEDS: LEVOTHYROXINE SODIUM 25 MCG TAB PO SCH (06:20)
[2023-09-17 06:36] LABS: Anion Gap 9 (5-15); Carbon Dioxide 26 mmol/L (20-30); Chloride 101 mmol/L (98-107); Potassium 3.1 mmol/L (3.5-5.1); Sodium 136 mmol/L (136-145)
[2023-09-17 06:37] LABS: Calcium 9.8 mg/dL (8.5-10.1)
[2023-09-17 06:42] LABS: BUN/Creatinine Ratio 12.7 (10.0-20.0); Blood Urea Nitrogen 13 mg/dL (9-23); Glucose 201 mg/dL (74-106)
[2023-09-17 07:45] VITALS: BP 135/72; PULSE 109; RESP 20; TEMP 98.5
[2023-09-17] MEDS ORDERED: POTASSIUM EFFERVESENT TAB 25 MEQ PO ONE (08:30)
[2023-09-17 09:00] VITALS: BP 135/72; PULSE 109; RESP 20; TEMP 98.5; O2SAT 97
[2023-09-17] MEDS: FUROSEMIDE 20 MG/2 ML VIAL IV SCH (09:11)
[2023-09-17] MEDS: SODIUM CHLOR 0.9% PF (SALINE LOCK) 10ML VIAL/SYR IV SCH (09:11)
[2023-09-17] MEDS: AMOXICILLIN/CLAVUL 875 MG TAB PO SCH (09:11)
[2023-09-17] MEDS: PANTOPRAZOLE 40 MG TAB PO SCH (09:12)
[2023-09-17] MEDS ORDERED: ACETAMINOPHEN 325 MG TAB PO PRN (12:15)
[2023-09-17] MEDS ORDERED: AUG875T PO (12:20)
[2023-09-17 13:00] VITALS: BP 147/63; PULSE 104; RESP 20; TEMP 98.2; O2SAT 96
[2023-09-17 13:31] VITALS: BP 135/72; PULSE 109; RESP 20; TEMP 98.5; O2SAT 97
[2023-09-17 16:40] VITALS: BP 136/65; PULSE 109; RESP 20; TEMP 98.8; O2SAT 95
== END 2023-09-17 18:48 | disposition home or self-care (01) | DRG 871 ==
LOC: EDUNIT# 14:19 → EDBD 14:19 → ER 14:19 → TELE 17:00 → TELE-WESTW 09-13 16:36 → WEST WING 09-15 23:22
PROVIDERS: ADMIT Internal Medicine; ATTEND Internal Medicine
PROC: 05HB33Z Insertion of Infusion Device into Right Basilic Vein, Percutaneous Approach (ICD-10-PCS; principal; 2023-09-11)
PROC: B54MZZA Ultrasonography of Right Upper Extremity Veins, Guidance (ICD-10-PCS; 2023-09-11)
DX: A41.9 Sepsis, unspecified organism (principal); G93.41 Metabolic encephalopathy; I21.A1 Myocardial infarction type 2; I50.33 Acute on chronic diastolic (congestive) heart failure; R65.21 Severe sepsis with septic shock; J96.00 Acute respiratory failure, unspecified whether with hypoxia or hypercapnia; N17.0 Acute kidney failure with tubular necrosis; E87.1 Hypo-osmolality and hyponatremia; E87.21 Acute metabolic acidosis; I48.20 Chronic atrial fibrillation, unspecified; N39.0 Urinary tract infection, site not specified; N13.8 Other obstructive and reflux uropathy; E03.9 Hypothyroidism, unspecified; E11.65 Type 2 diabetes mellitus with hyperglycemia; E78.5 Hyperlipidemia, unspecified; E87.6 Hypokalemia; B95.2 Enterococcus as the cause of diseases classified elsewhere; I11.0 Hypertensive heart disease with heart failure; N35.919 Unspecified urethral stricture, male, unspecified site; N40.1 Benign prostatic hyperplasia with lower urinary tract symptoms; K80.20 Calculus of gallbladder without cholecystitis without obstruction; R31.9 Hematuria, unspecified; D63.8 Anemia in other chronic diseases classified elsewhere; E66.9 Obesity, unspecified; Z95.0 Presence of cardiac pacemaker
CPT/HCPCS: 36415; 36569; 70450; 71045; 71250; 74176; 76775; 80048; 80053; 80202; 81001; 82140; 82565; 82962; 83036; 83540; 83550; 83605; 83735; 83880; 84443; 84484; 85007; 85014; 85018; 85025; 85027; 85610; 86850; 86900; 86901; 87040; 87077; 87086; 87088; 87186; 93005; 93306; 94640; 96365; 96367; 96375; 97116; 97163; 97530; 99291; C9113; G0378; J0131; J0692; J0696; J1815; J2001; J2405; J2543; J3480

== ENCOUNTER → 2023-11-18 | Outpatient (CLI) | payer OTHER ==
[~2023-11-18] MED LIST changes: +AUG875T PO; +DIGO0.12 PO; +DOCU-94 PO; +FERR325T24 PO; +FURO20TA3 PO; +SIMV10TA20 PO
[2023-11-18 08:02] LABS: Basophils # (auto) 0 10 ^3/uL (0-0.2); Basophils % (auto) 0.1 % (0.0-2.0); Eosinophils # (auto) 0 10 ^3/uL (0-0.8); Eosinophils % (auto) 0.2 % (0.0-7.0); Hematocrit 32.5 % (41.0-53.0); Hemoglobin 10.4 g/dL (13.5-17.5); Lymphocytes # (auto) 1.2 10 ^3/uL (0.4-5.4); Lymphocytes % (auto) 14.2 % (10.0-50.0); Mean Corpuscular Hemoglobin 24.4 pg (28.0-32.0); Mean Corpuscular Volume 76.4 fL (80.0-100.0); Monocytes # (auto) 0.5 10 ^3/uL (0-1.3); Monocytes % (auto) 5.5 % (0.0-12.0); Neutrophils # (auto) 6.6 10 ^3/uL (1.6-8.6); Nucleated Red Blood Cells % 0.3 %; Red Blood Cells 4.26 10^6/uL (4.5-5.90); White Blood Cell 8.3 10^3/uL (4.4-10.8)
[2023-11-18 08:04] LABS: Red Cell Distribution Width 22.8 % (11.8-14.3)
[2023-11-18 08:06] LABS: Creatinine, Urine 34.57 mg/dL (30.0-125.0)
[2023-11-18 08:10] LABS: Alanine Aminotransferase 19 U/L (7-40); Alkaline Phosphatase 56 U/L (46-116); Aspartate Aminotransferase 14 U/L (13-40); Calcium 9.5 mg/dL (8.5-10.1); Chloride 97 mmol/L (98-107); Cholesterol 264 mg/dL (< 200); Glucose 150 mg/dL (74-106); LDL Cholesterol 198 mg/dL (< 100); Potassium 3.7 mmol/L (3.5-5.1); Sodium 129 mmol/L (136-145); Triglycerides 171 mg/dL (< 150)
[2023-11-18 08:11] LABS: Bilirubin, Total 0.4 mg/dL (0.2-1.0); HDL Cholesterol 48 mg/dL (40-59)
[2023-11-18 09:12] LABS: Anion Gap 6 (5-15); Carbon Dioxide 26 mmol/L (20-30)
[2023-11-18 09:13] LABS: BUN/Creatinine Ratio 12.9 (10.0-20.0); Blood Urea Nitrogen 11 mg/dL (9-23)
[2023-11-19 08:06] LABS: PSA Free 0.4 ng/mL; Prostate Specific Antigen 5.4 ng/mL (0.0-4.0)
== END | disposition home or self-care (01) ==
LOC: LAB 07:21
PROVIDERS: ATTEND Student in an Organized Health Care Education/Training Program
DX: I10 Essential (primary) hypertension (principal); E11.9 Type 2 diabetes mellitus without complications; N40.0 Benign prostatic hyperplasia without lower urinary tract symptoms; N39.0 Urinary tract infection, site not specified
CPT/HCPCS: 36415; 80053; 80061; 82043; 82570; 83036; 84153; 84154; 84443; 85025; 87086

== ENCOUNTER → 2024-02-17 | Outpatient (CLI) | payer OTHER ==
[~2024-02-17] MED LIST changes: +ASPI-325 PO; +CLIN1CAP70 PO; +LEV100T PO; +LISI2.5T47 PO; +MET25T PO; +METF-929 PO; +METO25TA93 PO; +SIMV20TA20 PO
[2024-02-17 07:35] LABS: Urine Bacteria None Seen /hpf (None Seen)
[2024-02-17 07:53] LABS: Basophils # (auto) 0 10 ^3/uL (0-0.2); Basophils % (auto) 0.4 % (0.0-2.0); Eosinophils # (auto) 0 10 ^3/uL (0-0.8); Neutrophils # (auto) 5.7 10 ^3/uL (1.6-8.6); Nucleated Red Blood Cells % 0.1 %
[2024-02-17 07:55] LABS: Eosinophils % (auto) 0.4 % (0.0-7.0); Lymphocytes # (auto) 0.8 10 ^3/uL (0.4-5.4); Mean Corpuscular Hemoglobin 25.2 pg (28.0-32.0); Mean Corpuscular Hgb Conc. 31.5 g/dL (32.0-36.0); Mean Corpuscular Volume 79.8 fL (80.0-100.0); Monocytes # (auto) 0.5 10 ^3/uL (0-1.3); Monocytes % (auto) 6.8 % (0.0-12.0); Neutrophils % (auto) 81.4 % (37.0-80.0); Red Blood Cells 4.38 10^6/uL (4.5-5.90); Red Cell Distribution Width 19.5 % (11.8-14.3); White Blood Cell 6.9 10^3/uL (4.4-10.8)
[2024-02-17 08:10] LABS: Urine Blood Negative /uL (Negative); Urine Clarity Clear (Clear); Urine Color Light-Yellow (Yellow); Urine Hyaline Cast FEW /lpf (0 - 2); Urine Protein, UAD Negative (Negative); Urine Specific Gravity 1.019 (1.001-1.035); Urine Urobilinogen Normal (Negative); Urine WBC 2 /hpf (0 - 3); Urine pH 6.5 (5.0-9.0)
[2024-02-17 08:25] LABS: Alanine Aminotransferase 44 U/L (7-40); Alkaline Phosphatase 68 U/L (46-116); Anion Gap 10 (5-15); BUN/Creatinine Ratio 18.7 (10.0-20.0); Blood Urea Nitrogen 20 mg/dL (9-23); Calcium 9.8 mg/dL (8.5-10.1); Carbon Dioxide 26 mmol/L (20-30); Chloride 98 mmol/L (98-107); Glucose 241 mg/dL (74-106); LDL Cholesterol 171 mg/dL (< 100); Potassium 4.1 mmol/L (3.5-5.1); Sodium 134 mmol/L (136-145); Triglycerides 211 mg/dL (< 150)
[2024-02-17 08:26] LABS: Aspartate Aminotransferase 28 U/L (13-40); Bilirubin, Total 0.5 mg/dL (0.2-1.0); Cholesterol 249 mg/dL (< 200); HDL Cholesterol 43 mg/dL (40-59); Total Protein 6.9 g/dL (5.7-8.2)
[2024-02-18 08:06] LABS: PSA Free 0.59 ng/mL; Prostate Specific Antigen 5.8 ng/mL (0.0-4.0)
== END | disposition home or self-care (01) ==
LOC: LAB 07:19
PROVIDERS: ATTEND Student in an Organized Health Care Education/Training Program
DX: I10 Essential (primary) hypertension (principal); E11.9 Type 2 diabetes mellitus without complications; N40.0 Benign prostatic hyperplasia without lower urinary tract symptoms
CPT/HCPCS: 36415; 80053; 80061; 81001; 83036; 84153; 84154; 85025

== ENCOUNTER 2024-02-26 10:45 | Inpatient (IN) | payer OTHER, MEDICAID ==
[~2024-02-26] VITALS: Ht 177.8 cm; Wt 88.0 kg
[~2024-02-26 10:45] MED LIST changes: -ASPI-325 PO; -CLIN1CAP70 PO; -LEV100T PO; -LISI2.5T47 PO; -MET25T PO; -METF-929 PO; -METO25TA93 PO; -SIMV20TA20 PO
[2024-02-26] MEDS: ASPirin 81 mg TAB PO ONE (11:20)
[2024-02-26 11:45] VITALS: PULSE 90; RESP 18; O2SAT 98
[2024-02-26 12:08] LABS: Mean Corpuscular Hgb Conc. 32.2 g/dL (32.0-36.0); White Blood Cell 5.4 10^3/uL (4.4-10.8)
[2024-02-26 12:09] LABS: Basophils # (auto) 0 10 ^3/uL (0-0.2); Basophils % (auto) 0.7 % (0.0-2.0); Eosinophils # (auto) 0.1 10 ^3/uL (0-0.8); Hematocrit 41.1 % (41.0-53.0); Hemoglobin 13.2 g/dL (13.5-17.5); Lymphocytes # (auto) 1.4 10 ^3/uL (0.4-5.4); Mean Corpuscular Hemoglobin 25.3 pg (28.0-32.0); Mean Corpuscular Volume 78.5 fL (80.0-100.0); Monocytes # (auto) 0.8 10 ^3/uL (0-1.3); Monocytes % (auto) 14.7 % (0.0-12.0); Neutrophils # (auto) 3.2 10 ^3/uL (1.6-8.6); Neutrophils % (auto) 58.6 % (37.0-80.0); Nucleated Red Blood Cells % 0.3 %; Red Blood Cells 5.24 10^6/uL (4.5-5.90); Red Cell Distribution Width 18.7 % (11.8-14.3)
[2024-02-26 12:30] LABS: Alanine Aminotransferase 44 U/L (7-40); Albumin 4.6 g/dL (3.2-4.8); Alkaline Phosphatase 84 U/L (46-116); Anion Gap 13 (5-15); Aspartate Aminotransferase 39 U/L (13-40); BUN/Creatinine Ratio 16.3 (10.0-20.0); Bilirubin, Total 0.9 mg/dL (0.2-1.0); Blood Urea Nitrogen 15 mg/dL (9-23); Calcium 10.1 mg/dL (8.5-10.1); Carbon Dioxide 26 mmol/L (20-30); Chloride 86 mmol/L (98-107); Glucose 205 mg/dL (74-106); Potassium 2.9 mmol/L (3.5-5.1); Sodium 125 mmol/L (136-145); Total Protein 7.6 g/dL (5.7-8.2)
[2024-02-26 12:31] LABS: INR 0.97 (0.9-1.15); Prothrombin Time 10.3 sec (9.3-11.8)
[2024-02-26 13:10] LABS: Magnesium 1.7 mg/dL (1.6-2.6)
[2024-02-26] MEDS: POTASSIUM EFFERVESENT TAB 25 MEQ GT ONE (13:15)
[2024-02-26] MEDS: NITROGLYCERIN 2% OINT 1GM PKG TD ONE (13:16)
[2024-02-26] MEDS ORDERED: MORPHINE SULFATE INJ 2 MG/ml SYRG IV PRN (14:15)
[2024-02-26] MEDS ORDERED: NITROGLYCERIN 0.4 MG SL TAB SL PRN (14:15)
[2024-02-26] MEDS ORDERED: DOCUSATE SOD 100 MG CAP PO PRN (14:15)
[2024-02-26] MEDS ORDERED: VANCOMYCIN PER PHARMACY 0 MG IV SCH (15:00)
[2024-02-26 15:04] LABS: Phosphorus 3.3 mg/dL (2.4-5.1)
[2024-02-26 15:20] LABS: Urine Bacteria None Seen /hpf (None Seen)
[2024-02-26 15:26] LABS: % Iron Saturation 22.6 % (20-55)
[2024-02-26 15:30] LABS: Lactic Acid w/Reflex 3.3 mmol/L (0.4-2.0)
[2024-02-26] MEDS ORDERED: DEXTROSE (50%) 50ML SYRG IV PRN (15:30)
[2024-02-26 15:32] LABS: Magnesium 1.6 mg/dL (1.6-2.6)
[2024-02-26 15:42] LABS: Urine Blood Negative /uL (Negative); Urine Clarity Clear (Clear); Urine Color Light-Yellow (Yellow); Urine Protein, UAD Negative (Negative); Urine Specific Gravity 1.009 (1.001-1.035); Urine Urobilinogen Normal (Negative); Urine WBC 1 /hpf (0 - 3); Urine pH 7.5 (5.0-9.0)
[2024-02-26 15:51] LABS: Amphetamine Screen, Urine Neg (NEGATIVE); Barbiturate Scree,Urine Neg (NEGATIVE); Benzodiazephine Screen, Urine Neg (NEGATIVE)
[2024-02-26 15:52] LABS: Cannabinoid Screen, Urine Neg (NEGATIVE); Cocaine Screen, Urine Neg (NEGATIVE); Opiate Scree,Urine Neg (NEGATIVE); Phencyclidine Screen, Urine Neg (NEGATIVE)
[2024-02-26 15:58] LABS: Alanine Aminotransferase 50 U/L (7-40); Albumin 4.6 g/dL (3.2-4.8); Alkaline Phosphatase 84 U/L (46-116); Anion Gap 17 (5-15); Aspartate Aminotransferase 32 U/L (13-40); Blood Urea Nitrogen 15 mg/dL (9-23); Calcium 10.4 mg/dL (8.7-10.4); Carbon Dioxide 22 mmol/L (20-30); Chloride 86 mmol/L (98-107); Glucose 211 mg/dL (74-106); Potassium 2.9 mmol/L (3.5-5.1); Sodium 125 mmol/L (136-145)
[2024-02-26 15:59] LABS: Bilirubin, Total 0.8 mg/dL (0.2-1.0); Total Protein 7.7 g/dL (5.7-8.2)
[2024-02-26] MEDS: cefTRIAXone 1GM/50ML D5W 50 ML IV ONE (16:16)
[2024-02-26] MEDS: PANTOPRAZOLE 40 MG/10 ML VIAL INJ IV ONE (16:17)
[2024-02-26] MEDS: SODIUM CHLORIDE 0.9% 1,000 ML IV SCH ×2 (16:18→21:42)
[2024-02-26] MEDS: LIDOCAINE 2% JELLY 11ml (GLYDO) ONE (16:24)
[2024-02-26] MEDS: LEVOTHYROXINE SODIUM 25 MCG TAB PO ONE (16:24)
[2024-02-26] MEDS: CYANOCOBALAMIN 500 MCG TAB PO ONE (16:25)
[2024-02-26] MEDS: ONDANSETRON HCL 4 MG/2 ML VIAL IV PRN (16:26)
[2024-02-26] MEDS: VANCOMYCIN 1GM/200ML 200 ML IV ONE (16:37)
[2024-02-26] MEDS: ACCU-CHEK COMFORT CURVE STRIP VI SCH (17:00)
[2024-02-26] MEDS: POTASSIUM CHLORIDE 40 MEQ, LIDOCAINE 1% (LOCAL ANESTH.) 4 ML in SODIUM CHL 0.9% 250 ML IV ONE (17:00)
[2024-02-26] MEDS: InsuLIN REG 1unit/0.01ml Soln (100units/ml) SC SCH ×2 (17:30→22:28)
[2024-02-26] MEDS: FERROUS SULFATE 325mg EC TAB PO SCH (18:00)
[2024-02-26 18:27] LABS: Base Excess 3.4 mmol/L (-2.0-2.0)
[2024-02-26] MEDS: IOHEXOL 300 MG/ML 100ML BOTTLE IJ ONE (18:30)
[2024-02-26] MEDS: ENOXAPARIN SOD 100 MG/1 ML SYRINGE SC ONE (18:35)
[2024-02-26] MEDS: MAGNESIUM SULFATE 1GM/100ML 100 ML IV SCH (18:38)
[2024-02-26 20:06] LABS: Protein, Urine 17.8 mg/dL (0.0-11.9)
[2024-02-26 20:09] LABS: Creatinine, Urine 25.35 mg/dL (30.0-125.0)
[2024-02-26 20:26] LABS: Chloride 89 mmol/L (98-107); Potassium 3.4 mmol/L (3.5-5.1); Sodium 123 mmol/L (136-145)
[2024-02-26 20:27] LABS: Anion Gap 10 (5-15); Calcium 9.3 mg/dL (8.7-10.4); Carbon Dioxide 24 mmol/L (20-30)
[2024-02-26 20:32] LABS: BUN/Creatinine Ratio 9.5 (10.0-20.0); Blood Urea Nitrogen 8 mg/dL (9-23); Glucose 200 mg/dL (74-106)
[2024-02-26] MEDS: PANTOPRAZOLE 40 MG/10 ML VIAL INJ IV SCH (21:46)
[2024-02-26] MEDS: METOPROLOL TARTRATE 25 MG TAB PO SCH (21:47)
[2024-02-26] MEDS: ATORVASTATIN 20 MG TAB PO SCH (21:47)
[2024-02-26 23:42] LABS: Chloride 92 mmol/L (98-107); Potassium 3.2 mmol/L (3.5-5.1); Sodium 125 mmol/L (136-145)
[2024-02-26 23:43] LABS: Anion Gap 7 (5-15); Calcium 8.7 mg/dL (8.5-10.1); Carbon Dioxide 26 mmol/L (20-30)
[2024-02-26 23:48] LABS: BUN/Creatinine Ratio 8.3 (10.0-20.0); Blood Urea Nitrogen 7 mg/dL (9-23); Glucose 211 mg/dL (74-106)
[2024-02-27] VITALS (7 sets, daily range): BP systolic 111–146; BP diastolic 50–67; PULSE 70–88; RESP 12–20; TEMP 97.5–99.3; O2SAT 97–100
[2024-02-27 02:05] LABS: Chloride 92 mmol/L (98-107); Sodium 125 mmol/L (136-145)
[2024-02-27 02:06] LABS: Anion Gap 7 (5-15); Carbon Dioxide 26 mmol/L (20-30)
[2024-02-27 02:11] LABS: BUN/Creatinine Ratio 10.8 (10.0-20.0); Blood Urea Nitrogen 9 mg/dL (9-23); Glucose 196 mg/dL (74-106)
[2024-02-27] MEDS: VANCOMYCIN 750mg/150ml 150 ML IV SCH (05:37)
[2024-02-27] MEDS: MORPHINE SULFATE INJ 2 MG/ml SYRG IV PRN (05:58)
[2024-02-27 07:42] LABS: Chloride 94 mmol/L (98-107); Potassium 3.2 mmol/L (3.5-5.1); Sodium 125 mmol/L (136-145)
[2024-02-27 07:43] LABS: Anion Gap 7 (5-15); Calcium 8.8 mg/dL (8.7-10.4); Carbon Dioxide 24 mmol/L (20-30)
[2024-02-27 07:48] LABS: BUN/Creatinine Ratio 7.7 (10.0-20.0); Blood Urea Nitrogen 6 mg/dL (9-23); Glucose 178 mg/dL (74-106)
[2024-02-27] MEDS: MAGNESIUM SULFATE 1GM/100ML 100 ML IV ONE (08:14)
[2024-02-27] MEDS: LEVOTHYROXINE SODIUM 25 MCG TAB PO SCH (08:15)
[2024-02-27] MEDS: SODIUM CHLORIDE 0.9% 1,000 ML IV SCH (08:15)
[2024-02-27] MEDS: POTASSIUM CHLORIDE 60 MEQ, LIDOCAINE 1% (LOCAL ANESTH.) 6 ML in SODIUM CHL 0.9% 500 ML IV ONE (08:48)
[2024-02-27] MEDS: cefTRIAXone 1GM/50ML D5W 50 ML IV SCH (09:00)
[2024-02-27 11:50] LABS: Chloride 93 mmol/L (98-107); Potassium 2.9 mmol/L (3.5-5.1); Sodium 127 mmol/L (136-145)
[2024-02-27 11:51] LABS: Anion Gap 6 (5-15); Carbon Dioxide 28 mmol/L (20-30)
[2024-02-27 11:52] LABS: Calcium 9.1 mg/dL (8.7-10.4)
[2024-02-27 11:56] LABS: BUN/Creatinine Ratio 7.7 (10.0-20.0); Blood Urea Nitrogen 6 mg/dL (9-23); Glucose 175 mg/dL (74-106)
[2024-02-27] MEDS: ASPirin 81 mg TAB PO SCH (12:15)
[2024-02-27] MEDS: ENOXAPARIN SOD 100 MG/1 ML SYRINGE SC SCH (12:15)
[2024-02-27] MEDS: CYANOCOBALAMIN 500 MCG TAB PO SCH (12:17)
[2024-02-27] MEDS ORDERED: LIDOCAINE 2% JELLY 11ml (GLYDO) ONE (13:55)
[2024-02-27] MEDS ORDERED: POTASSIUM CHL 10MEQ/100ML 100 ML IV ONE (14:02)
[2024-02-27] MEDS: POTASSIUM CHL 20MEQ/100ML 100 ML IV ONE (14:10)
[2024-02-27] MEDS ORDERED: fentaNYL CITRATE 100 MCG/2 ML VL ONE (14:38)
[2024-02-27] MEDS ORDERED: ONDANSETRON HCL 4 MG/2 ML VIAL ONE (14:38)
[2024-02-27] MEDS ORDERED: SODIUM CHLORIDE LOCK 0 ML ONE (14:38)
[2024-02-27] MEDS ORDERED: PROPOFOL 10 MG/ML 20 ML IV ONE (14:38)
[2024-02-27] MEDS ORDERED: KETAMINE 50mg/ML 1ml syringe ONE (14:38)
[2024-02-27] MEDS ORDERED: MIDAZOLAM HCL 2MG/2ML 2ml VIAL (1mg/ml) ONE (14:40)
[2024-02-27 15:00] LABS: Anion Gap 3 (5-15); Carbon Dioxide 28 mmol/L (20-30); Chloride 95 mmol/L (98-107); Sodium 126 mmol/L (136-145)
[2024-02-27 15:01] LABS: Calcium 8.7 mg/dL (8.7-10.4)
[2024-02-27 15:05] LABS: Glucose 183 mg/dL (74-106)
[2024-02-27 15:06] LABS: BUN/Creatinine Ratio 6.7 (10.0-20.0); Blood Urea Nitrogen 5 mg/dL (9-23)
[2024-02-27] MEDS ORDERED: IOHEXOL 300 MG/ML 100ML BOTTLE IJ ONE (17:03)
[2024-02-27 18:25] LABS: Chloride 95 mmol/L (98-107); Potassium 3.2 mmol/L (3.5-5.1); Sodium 127 mmol/L (136-145)
[2024-02-27 18:26] LABS: Anion Gap 5 (5-15); Calcium 8.7 mg/dL (8.5-10.1); Carbon Dioxide 27 mmol/L (20-30)
[2024-02-27 18:31] LABS: Glucose 209 mg/dL (74-106)
[2024-02-27 18:52] LABS: BUN/Creatinine Ratio 6.3 (10.0-20.0); Blood Urea Nitrogen < 5 mg/dL (9-23)
[2024-02-27] MEDS: POTASSIUM EFFERVESENT TAB 25 MEQ PO ONE (20:31)
[2024-02-28] VITALS (9 sets, daily range): BP systolic 105–148; BP diastolic 56–69; PULSE 76–88; RESP 16–20; TEMP 97.8–99.2; O2SAT 91–99
[2024-02-28 05:55] LABS: White Blood Cell 3.7 10^3/uL (4.4-10.8)
[2024-02-28 05:56] LABS: Hematocrit 31.3 % (41.0-53.0); Hemoglobin 10.2 g/dL (13.5-17.5); Mean Corpuscular Hemoglobin 25.4 pg (28.0-32.0); Mean Corpuscular Hgb Conc. 32.5 g/dL (32.0-36.0); Red Blood Cells 4.01 10^6/uL (4.5-5.90); Red Cell Distribution Width 19.1 % (11.8-14.3)
[2024-02-28 06:07] LABS: Basophils % (manual) 0 (0.0-2.0); Blast Cells 0; Eosinophils % (manual) 0 (0-7); Monocytes % (manual) 0 (0-12); Myelocytes % 0; Promyelocytes % 0; Reactive Lymphocytes 0
[2024-02-28 06:42] LABS: Band Neutrophils % (manual) 3; Lymphocytes % (manual) 13 (10.0-50.0); Metamyelocytes % 1
[2024-02-28 06:44] LABS: Platelet Estimate Adequate
[2024-02-28 07:10] LABS: Alanine Aminotransferase 38 U/L (7-40); Albumin 3.3 g/dL (3.2-4.8); Alkaline Phosphatase 58 U/L (46-116); Anion Gap 8 (5-15); Aspartate Aminotransferase 54 U/L (13-40); Blood Urea Nitrogen 7 mg/dL (9-23); Calcium 8.8 mg/dL (8.7-10.4); Carbon Dioxide 24 mmol/L (20-30); Chloride 99 mmol/L (98-107); Glucose 191 mg/dL (74-106); Potassium 3.2 mmol/L (3.5-5.1); Sodium 131 mmol/L (136-145)
[2024-02-28 07:11] LABS: Bilirubin, Total 0.6 mg/dL (0.2-1.0); Total Protein 5.6 g/dL (5.7-8.2)
[2024-02-28] MEDS: POTASSIUM CHLORIDE 80 MEQ, LIDOCAINE 1% (LOCAL ANESTH.) 6 ML in SODIUM CHL 0.9% 500 ML IV ONE (11:39)
[2024-02-28] MEDS: ACETAMINOPHEN 325 MG TAB PO PRN (12:32)
[2024-02-28] MEDS ORDERED: METF-929 PO ×2 (16:43→16:46)
[2024-02-28] MEDS ORDERED: METO25TA93 PO (16:43)
[2024-02-28] MEDS ORDERED: SIMV20TA20 PO (16:43)
[2024-02-28] MEDS ORDERED: LISI2.5T47 PO (16:47)
[2024-02-28] MEDS ORDERED: SUCR1TAB PO (16:50)
[2024-02-28] MEDS: VANCOMYCIN 1GM/200ML 200 ML IV SCH (17:27)
[2024-02-29 05:00] VITALS: BP 150/75; PULSE 76; RESP 18; TEMP 98.3; O2SAT 97
[2024-02-29 08:00] VITALS: PULSE 62
[2024-02-29 08:38] VITALS: BP 147/72; PULSE 76; RESP 20; TEMP 98.9; O2SAT 98
[2024-02-29 12:25] VITALS: BP 125/47; PULSE 63; RESP 20; TEMP 98; O2SAT 96
[2024-02-29 17:00] VITALS: BP 135/63; PULSE 70; RESP 20; TEMP 98.6; O2SAT 98
[2024-02-29 21:00] VITALS: BP 148/64; PULSE 78; RESP 18; TEMP 98; O2SAT 97
[2024-03-01] VITALS (12 sets, daily range): BP systolic 131–154; BP diastolic 63–74; PULSE 66–98; RESP 16–20; TEMP 97.8–99.9; O2SAT 95–99
[2024-03-01 07:35] LABS: Anion Gap 9 (5-15); Calcium 9.2 mg/dL (8.5-10.1); Carbon Dioxide 22 mmol/L (20-30); Chloride 103 mmol/L (98-107); Potassium 3.3 mmol/L (3.5-5.1); Sodium 134 mmol/L (136-145)
[2024-03-01 07:41] LABS: BUN/Creatinine Ratio 6.8 (10.0-20.0); Blood Urea Nitrogen 6 mg/dL (9-23); Glucose 192 mg/dL (74-106)
[2024-03-01] MEDS: INSULIN LANTUS (GLARGINE) 1 /0.01ml (100units/ml) SC SCH (11:00)
[2024-03-01] MEDS: POTASSIUM CHL 20 Meq TABLET PO ONE (14:45)
[2024-03-01] MEDS: VANCOMYCIN 1GM/200ML 200 ML IV SCH (20:03)
[2024-03-01] MEDS: ENOXAPARIN SOD 100 MG/1 ML SYRINGE SC SCH (21:08)
[2024-03-02] VITALS (7 sets, daily range): BP systolic 127–152; BP diastolic 67–79; PULSE 92–108; RESP 16–19; TEMP 98–99.2; O2SAT 95–98
[2024-03-02 07:06] LABS: Alanine Aminotransferase 35 U/L (7-40); Albumin 3.7 g/dL (3.2-4.8); Alkaline Phosphatase 80 U/L (46-116); Anion Gap 10 (5-15); Aspartate Aminotransferase 24 U/L (13-40); BUN/Creatinine Ratio 6.5 (10.0-20.0); Blood Urea Nitrogen 6 mg/dL (9-23); Calcium 9.6 mg/dL (8.5-10.1); Carbon Dioxide 22 mmol/L (20-30); Chloride 101 mmol/L (98-107); Glucose 197 mg/dL (74-106); Potassium 3.6 mmol/L (3.5-5.1); Sodium 133 mmol/L (136-145)
[2024-03-02 07:07] LABS: Bilirubin, Total 0.5 mg/dL (0.2-1.0); Total Protein 6.6 g/dL (5.7-8.2)
[2024-03-02 07:09] LABS: INR 1.03 (0.9-1.15); Partial Thromboplastin Time 26.1 SEC (24.5-34.5); Prothrombin Time 10.9 sec (9.3-11.8)
[2024-03-02 07:53] LABS: Hemoglobin 11.2 g/dL (13.5-17.5); Lymphocytes # (auto) 1.1 10 ^3/uL (0.4-5.4); Neutrophils # (auto) 4.5 10 ^3/uL (1.6-8.6); Neutrophils % (auto) 66.4 % (37.0-80.0)
[2024-03-02 07:55] LABS: Basophils # (auto) 0.1 10 ^3/uL (0-0.2); Basophils % (auto) 0.8 % (0.0-2.0); Eosinophils # (auto) 0.1 10 ^3/uL (0-0.8); Eosinophils % (auto) 2.2 % (0.0-7.0); Hematocrit 34.8 % (41.0-53.0); Lymphocytes % (auto) 15.6 % (10.0-50.0); Mean Corpuscular Hemoglobin 25.4 pg (28.0-32.0); Mean Corpuscular Hgb Conc. 32.1 g/dL (32.0-36.0); Mean Corpuscular Volume 79.1 fL (80.0-100.0); Nucleated Red Blood Cells % 0.7 %; Red Cell Distribution Width 19.2 % (11.8-14.3); White Blood Cell 6.8 10^3/uL (4.4-10.8)
[2024-03-02] MEDS: LIDOCAINE VISCOUS 2% 15ML UD PO ONE (11:51)
[2024-03-02] MEDS: MIDAZOLAM HCL 2MG/2ML 2ml VIAL (1mg/ml) IV ONE (11:52)
[2024-03-02] MEDS: fentaNYL CITRATE 100 MCG/2 ML VL IV ONE (11:53)
[2024-03-02] MEDS ORDERED: metroNIDAZOLE 500MG/100ML 100 ML IV SCH (14:00)
[2024-03-02] MEDS: metroNIDAZOLE 500MG/100ML 100 ML IV ONE (14:27)
[2024-03-02] MEDS: metroNIDAZOLE 500MG/100ML 100 ML IV SCH (22:00)
[2024-03-03 01:00] VITALS: BP 149/77; PULSE 98; RESP 18; TEMP 98.8; O2SAT 97
[2024-03-03 05:00] VITALS: BP 120/62; PULSE 97; RESP 17; TEMP 98.5; O2SAT 98
[2024-03-03 06:30] LABS: Basophils # (auto) 0 10 ^3/uL (0-0.2); Basophils % (auto) 0.3 % (0.0-2.0); Eosinophils # (auto) 0.2 10 ^3/uL (0-0.8); Eosinophils % (auto) 1.8 % (0.0-7.0); Hemoglobin 11.2 g/dL (13.5-17.5); Mean Corpuscular Hgb Conc. 32.4 g/dL (32.0-36.0); White Blood Cell 9.9 10^3/uL (4.4-10.8)
[2024-03-03 06:32] LABS: Hematocrit 34.5 % (41.0-53.0); Lymphocytes % (auto) 9.8 % (10.0-50.0); Mean Corpuscular Hemoglobin 25.3 pg (28.0-32.0); Mean Corpuscular Volume 78.2 fL (80.0-100.0); Monocytes % (auto) 10.5 % (0.0-12.0); Neutrophils # (auto) 7.7 10 ^3/uL (1.6-8.6); Neutrophils % (auto) 77.6 % (37.0-80.0); Nucleated Red Blood Cells % 0.4 %; Red Blood Cells 4.41 10^6/uL (4.5-5.90)
[2024-03-03 06:39] LABS: Alanine Aminotransferase 30 U/L (7-40); Albumin 3.6 g/dL (3.2-4.8); Alkaline Phosphatase 77 U/L (46-116); Anion Gap 9 (5-15); Aspartate Aminotransferase 21 U/L (13-40); BUN/Creatinine Ratio 8.5 (10.0-20.0); Blood Urea Nitrogen 8 mg/dL (9-23); Calcium 9.5 mg/dL (8.5-10.1); Carbon Dioxide 21 mmol/L (20-30); Chloride 102 mmol/L (98-107); Glucose 211 mg/dL (74-106); Potassium 3.3 mmol/L (3.5-5.1); Sodium 132 mmol/L (136-145)
[2024-03-03 06:40] LABS: Bilirubin, Total 0.6 mg/dL (0.2-1.0); Total Protein 6.4 g/dL (5.7-8.2)
[2024-03-03 08:00] VITALS: PULSE 91
[2024-03-03] MEDS: POTASSIUM EFFERVESENT TAB 25 MEQ PO ONE (08:37)
[2024-03-03 08:46] VITALS: BP 122/57; PULSE 67; RESP 19; TEMP 98.8; O2SAT 96
[2024-03-03] MEDS: ENOXAPARIN SOD 40 MG/0.4 ML SYRINGE SC SCH (08:48)
[2024-03-03] MEDS: POTASSIUM CHLORIDE 40 MEQ, LIDOCAINE 1% (LOCAL ANESTH.) 4 ML in SODIUM CHL 0.9% 250 ML IV ONE (09:56)
[2024-03-03 12:34] VITALS: BP 128/56; PULSE 76; RESP 19; TEMP 98; O2SAT 98
[2024-03-03] MEDS ORDERED: ASPI-325 PO (13:21)
[2024-03-03] MEDS ORDERED: LEV100T PO (13:21)
[2024-03-03] MEDS ORDERED: CLIN1CAP70 PO (13:21)
[2024-03-03] MEDS ORDERED: MET25T PO (13:21)
== END 2024-03-03 18:56 | disposition home or self-care (01) | DRG 871 ==
LOC: ER 10:45 → TELE 14:30 → TELE-EAST 02-27 09:30
PROVIDERS: ADMIT Internal Medicine; ATTEND Internal Medicine
PROC: B24BZZ4 Ultrasonography of Heart with Aorta, Transesophageal (ICD-10-PCS; principal; 2024-03-02)
DX: A41.9 Sepsis, unspecified organism (principal); G93.41 Metabolic encephalopathy; I21.A1 Myocardial infarction type 2; I50.32 Chronic diastolic (congestive) heart failure; E87.1 Hypo-osmolality and hyponatremia; E07.9 Disorder of thyroid, unspecified; E11.9 Type 2 diabetes mellitus without complications; K04.7 Periapical abscess without sinus; E66.9 Obesity, unspecified; E78.5 Hyperlipidemia, unspecified; E87.6 Hypokalemia; I11.0 Hypertensive heart disease with heart failure; I48.91 Unspecified atrial fibrillation; E03.9 Hypothyroidism, unspecified; D53.9 Nutritional anemia, unspecified; K08.89 Other specified disorders of teeth and supporting structures; N35.919 Unspecified urethral stricture, male, unspecified site; N40.0 Benign prostatic hyperplasia without lower urinary tract symptoms; I35.9 Nonrheumatic aortic valve disorder, unspecified; Z79.84 Long term (current) use of oral hypoglycemic drugs; Z95.0 Presence of cardiac pacemaker; Z79.899 Other long term (current) drug therapy; Z68.25 Body mass index [BMI] 25.0-25.9, adult
CPT/HCPCS: 36415; 36600; 70450; 70487; 71045; 74176; 80048; 80053; 80061; 80202; 80307; 81001; 82306; 82565; 82570; 82607; 82746; 82805; 82962; 83010; 83540; 83550; 83605; 83615; 83735; 83880; 83930; 83935; 84100; 84133; 84156; 84300; 84443; 84484; 85007; 85025; 85027; 85610; 85730; 86850; 86900; 86901; 87040; 87086; 87088; 93005; 93306; 93312; 96365; 96375; 99152; C9113; G0378; J1815; J2001; J2250; J2405; J2704; J3490

== ENCOUNTER → 2024-10-12 | Outpatient (CLI) | payer OTHER ==
[~2024-10-12] MED LIST changes: +ASPI-325 PO; -AUG875T PO; -CHLO25TA2 PO; +CLIN1CAP70 PO; -DIGO0.12 PO; -FURO20TA3 PO; -LEV25T PO; +LEVO-849 PO; -LISI10TA34 PO; +LISI2.5T47 PO; +MET25T PO; -METF-371 PO; +METF-929 PO; -METO25TA5 PO; -NITR-87 PO; -SIMV10TA20 PO; +SIMV20TA20 PO; -TAMS-35 PO
[2024-10-12 07:55] LABS: Urine Bacteria None Seen /hpf (None Seen)
[2024-10-12 08:13] LABS: Basophils # (auto) 0 10 ^3/uL (0-0.2); Basophils % (auto) 0.4 % (0.0-2.0); Eosinophils # (auto) 0 10 ^3/uL (0-0.8); Eosinophils % (auto) 0.5 % (0.0-7.0); Hemoglobin 12.6 g/dL (13.5-17.5); Lymphocytes # (auto) 1.7 10 ^3/uL (0.4-5.4); Lymphocytes % (auto) 19.8 % (10.0-50.0); Mean Corpuscular Hemoglobin 28.8 pg (28.0-32.0); Mean Corpuscular Hgb Conc. 33.2 g/dL (32.0-36.0); Mean Corpuscular Volume 86.7 fL (80.0-100.0); Monocytes # (auto) 0.5 10 ^3/uL (0-1.3); Monocytes % (auto) 6.2 % (0.0-12.0); Neutrophils # (auto) 6.3 10 ^3/uL (1.6-8.6); Neutrophils % (auto) 73.1 % (37.0-80.0); Nucleated Red Blood Cells % 0.1 %; Platelet Count (auto) 266 10^3/uL (140-450); Red Blood Cells 4.38 10^6/uL (4.5-5.90); Red Cell Distribution Width 17.8 % (11.8-14.3); White Blood Cell 8.7 10^3/uL (4.4-10.8)
[2024-10-12 08:25] LABS: Urine Blood Negative /uL (Negative); Urine Clarity Clear (Clear); Urine Color Light-Yellow (Yellow); Urine Protein, UAD Negative (Negative); Urine Urobilinogen Normal (Negative); Urine WBC 4 /hpf (0 - 3)
[2024-10-12 08:28] LABS: Alanine Aminotransferase 30 U/L (7-40); Albumin 4.1 g/dL (3.2-4.8); Alkaline Phosphatase 59 U/L (46-116); Anion Gap 8 (5-15); Aspartate Aminotransferase 14 U/L (13-40); BUN/Creatinine Ratio 21.3 (10.0-20.0); Blood Urea Nitrogen 20 mg/dL (9-23); Calcium 10.4 mg/dL (8.7-10.4); Carbon Dioxide 29 mmol/L (20-31); Chloride 100 mmol/L (98-107); Sodium 137 mmol/L (136-145)
[2024-10-12 08:29] LABS: Bilirubin, Total 0.5 mg/dL (0.2-1.0); Total Protein 7.2 g/dL (5.7-8.2)
[2024-10-12 08:40] LABS: Glucose 174 mg/dL (74-106)
== END | disposition home or self-care (01) ==
LOC: LAB 07:43
PROVIDERS: ATTEND Student in an Organized Health Care Education/Training Program
DX: E11.9 Type 2 diabetes mellitus without complications (principal); I10 Essential (primary) hypertension; N39.0 Urinary tract infection, site not specified
CPT/HCPCS: 36415; 80053; 81001; 83036; 85025; 87086

== ENCOUNTER 2025-04-06 07:07 | Outpatient (CLI) | payer OTHER ==
[2025-04-06 07:45] LABS: LDL Cholesterol 88 mg/dL (< 100)
[2025-04-06 07:46] LABS: Cholesterol 172 mg/dL (< 200)
[2025-04-06 07:47] LABS: HDL Cholesterol 40 mg/dL (40-59); Triglycerides 252 mg/dL (< 150)
[2025-04-06 07:55] LABS: Creatinine, Urine 55.79 mg/dL (30.0-125.0)
[2025-04-06 10:43] LABS: Prostate Specific Antigen 9.02 ng/mL (0.0-4.0)
[2025-04-06 10:44] LABS: Free T3 2.53 pg/mL (2.3-4.2)
[2025-04-06 10:45] LABS: Free T4 (Free Thyroxine) 1.13 ng/dL (0.89-1.76)
[2025-04-07 08:07] LABS: PSA Free 0.77 ng/mL; Prostate Specific Antigen 9.4 ng/mL (0.0-4.0)
== END 2025-04-06 17:00 | disposition home or self-care (01) ==
LOC: LAB 07:07
PROVIDERS: ATTEND Student in an Organized Health Care Education/Training Program
DX: R97.20 Elevated prostate specific antigen [PSA] (principal); I10 Essential (primary) hypertension; E11.9 Type 2 diabetes mellitus without complications; E78.5 Hyperlipidemia, unspecified; E55.9 Vitamin D deficiency, unspecified
CPT/HCPCS: 36415; 80061; 82043; 82570; 84153; 84154; 84439; 84443; 84481

== ENCOUNTER 2025-07-19 07:55 | Outpatient (CLI) | payer OTHER ==
[2025-07-19 08:34] LABS: Hematocrit 41.3 % (41.0-53.0); Hemoglobin 13.8 g/dL (13.5-17.5); Mean Corpuscular Hemoglobin 29.5 pg (28.0-32.0); Mean Corpuscular Volume 88.1 fL (80.0-100.0); Nucleated Red Blood Cells % 0.2 %
[2025-07-19 09:07] LABS: Albumin 4.2 g/dL (3.2-4.8); Alkaline Phosphatase 46 U/L (46-116); Anion Gap 9 (5-15); BUN/Creatinine Ratio 17.3 (10.0-20.0); Blood Urea Nitrogen 18 mg/dL (9-23); Calcium 9.7 mg/dL (8.7-10.4); Carbon Dioxide 28 mmol/L (20-31); Chloride 102 mmol/L (98-107); Potassium 3.9 mmol/L (3.5-5.1); Sodium 139 mmol/L (136-145); Total Protein 7.4 g/dL (5.7-8.2)
[2025-07-19 09:08] LABS: Alanine Aminotransferase 49 U/L (7-40); Bilirubin, Total 0.5 mg/dL (0.2-1.0); Glucose 124 mg/dL (74-106)
[2025-07-19 09:09] LABS: Urine Protein, UAD Normal (Negative)
== END 2025-07-19 17:00 | disposition home or self-care (01) ==
LOC: LAB 07:55
PROVIDERS: ATTEND Student in an Organized Health Care Education/Training Program
DX: I10 Essential (primary) hypertension (principal); E11.9 Type 2 diabetes mellitus without complications; R79.89 Other specified abnormal findings of blood chemistry
CPT/HCPCS: 36415; 80053; 81003; 83036; 84439; 84443; 85025